=== PATIENT | male | born 1945 | race Caucasian/White ===

== ENCOUNTER 2016-09-20 06:06 | Inpatient (IN) | payer OTHER ==
[~2016-09-20] VITALS: Ht 180.3 cm; Wt 97.6 kg
[~2016-09-20 06:06] MED LIST: LISI10TA4 PO; MELO7.5S PO; SIMV20TA2 PO; TRAM50TA2 PO
[2016-09-20 06:52] LABS: BASO % 0.2 % (0.0-1.0); EOS # 0.3 K/mm3 (0.0-0.50); EOS % 2.8 % (0.0-3.0); LARGE UNSTAINED CELL # 0.3 K/mm3 (0.0-0.4); LARGE UNSTAINED CELL % 3.1 % (0.0-4.0); LYMPH # 1.3 K/mm3 (1.5-4.5); LYMPH % 12.2 % (24.0-44.0); MEAN CORPUSCULAR HEMOGLOBIN 27.1 pg (27.0-33.0); MEAN CORPUSCULAR HGB CONC 32.4 g/dl (32.0-36.5); MEAN CORPUSCULAR VOLUME 83.7 fl (80.0-96.0); MONO # 0.6 K/mm3 (0.0-0.8); MONO % 5.5 % (0.0-5.0); NEUTROPHILS # 8.3 K/mm3 (1.8-7.7); NEUTROPHILS % 76.2 % (36.0-66.0); PLATELET COUNT, AUTOMATED 231 k/mm3 (150-450); RED CELL DISTRIBUTION WIDTH 14.1 % (11.5-14.5); WHITE BLOOD COUNT 10.9 K/mm3 (4.0-10.0)
[2016-09-20 07:09] LABS: ALBUMIN 3.4 GM/DL (3.2-5.2); ALBUMIN/GLOBULIN RATIO 0.85 (1.00-1.93); ALKALINE PHOSPHATASE 97 U/L (45-117); ALT/SGPT 22 U/L (12-78); AMYLASE 45 U/L (25-115); ANION GAP 10 MEQ/L (8-16); AST/SGOT 14 U/L (15-37); BILIRUBIN,DIRECT 0.1 MG/DL (0.0-0.2); BILIRUBIN,TOTAL 0.6 MG/DL (0.2-1.0); BLOOD UREA NITROGEN 22 MG/DL (7-18); CALCIUM LEVEL 9.2 MG/DL (8.8-10.2); CARBON DIOXIDE LEVEL 26 MEQ/L (21-32); CHLORIDE LEVEL 103 MEQ/L (98-107); CREATININE FOR GFR 0.73 MG/DL (0.70-1.30); GLOMERULAR FILTRATION RATE > 60.0 (>49); GLUCOSE, FASTING 111 MG/DL (80-110); POTASSIUM SERUM 4.2 MEQ/L (3.5-5.1); SODIUM LEVEL 139 MEQ/L (136-145); TOTAL PROTEIN 7.4 GM/DL (6.4-8.2)
[2016-09-20] MEDS ORDERED: GASTROGRAFIN SOLUTION 30ML (Q9963) As Ordered ONE (08:02)
[2016-09-20] MEDS ORDERED: ISOVUE-370 76% 100ML VIAL (Q9967) As Ordered ONE (09:48)
[2016-09-20] MEDS ORDERED: ZOSYN 3.375 GM VIAL (J2543) As Ordered ONE (10:49)
[2016-09-20] MEDS ORDERED: SIMV20TA2 PO (10:58)
[2016-09-20] MEDS ORDERED: LISI10TA4 PO (10:58)
[2016-09-20] MEDS ORDERED: VITMTA PO (11:26)
[2016-09-20] MEDS ORDERED: PROMETHAZINE INJ 25 MG/ML VIAL (J2550) IV PRN (13:00)
[2016-09-20] MEDS ORDERED: MORPHINE 4 MG/ML 1ML SYRINGE IV PRN (13:00)
[2016-09-20] MEDS ORDERED: PERCOCET 5MG/325MG TAB PO PRN ×2 (13:00)
[2016-09-20] MEDS ORDERED: MORPHINE 2 MG/ML 1ML SYRINGE IV PRN (13:00)
[2016-09-20] MEDS ORDERED: ONDANSETRON 4MG/2ML VIAL (J2405) IV PRN (13:00)
[2016-09-20] MEDS ORDERED: zolPIDEM TARTRATE 10MG TAB PO PRN (13:00)
[2016-09-20] MEDS ORDERED: METOCLOPRAMIDE INJ 10MG/2ML VIAL (J2765) IV PRN (13:00)
[2016-09-20 13:44] VITALS: BP 129/72
--- NOTE | 2016-09-20 14:14 | EDDOCDS ---
Nurse's Notes [facility] Name: Kar Portillo Age: 71 yrs Sex: Male : 1945 Arrival Date: 09/20/2016 Time: 06:06 Bed 15 Private MD: Kalen Mccall H. Diagnosis: Acute appendicitis with localized peritonitis Presentation: 09/20 06:12 Presenting complaint: Patient states: right lower abdominal pain since Monday gradually cz getting worse no vomiting or diarrhea denies any bowel issues. Adult Sepsis Screening: The patient does not have new or worsening altered mentation. Patient's respiratory rate is less than 22. Systolic blood pressure is greater than 100. Patient has a qSOFA score of 0- Negative Sepsis Screen. Suicide/Homicide risk assessment- the patient denies having any suicidal and/or homicidal ideations and does not present with any other emotional, behavioral or mental health complaints. Status: Patient is not a web services developer or dependent. Transition of care: patient was not received from another setting of care. 06:12 Acuity: TAD Level 3 cz 06:12 Method Of Arrival: Walkin/Carried/Asstd cz Triage Assessment: 06:15 General: Appears uncomfortable. Pain: Location: right lower quadrant Pain currently is cz 6 out of 10 on a pain scale. Historical: - Allergies: No known drug Allergies; - Home Meds: 1. Lisinopril Oral 2. Simvastatin Oral - PMHx: Hypercholesterolemia; Hypertension; - PSHx: left tibial repair; Carpal Tunnel Repair- Bilateral; - Social history: Smoking status: Patient states former smoker of tobacco. No barriers to communication noted, The patient speaks fluent Ivorian, Speaks appropriately for age. - Family history: Not pertinent. - : The pt / caregiver states he / she is not on anticoagulants. Home medication list is obtained from the patient. - Exposure Risk Screening:: None identified. Screenin:35 Screening information is obtained from the patient. Fall risk: No risks identified. tm5 Assistance ADL's: requires no assistance with activities of daily living. Abuse/DV Screen: The patient / caregiver reports he/she is: not in a situation that causes fear, pain or injury. Nutritional screening: No deficits noted. Advance Directives: Currently, there is no health care proxy. There is no active DNR order. home support is adequate. Assessment: 06:36 General: Appears in no apparent distress, Behavior is appropriate for age, cooperative. tm5 Pain: Location: right lower quadrant Pain currently is 4 out of 10 on a pain scale. Quality of pain is described as sharp. Neurological: Level of Consciousness is awake, alert, Oriented to person, place, time. Respiratory: Airway is patent Respiratory effort is even, unlabored, Respiratory pattern is regular, symmetrical, Breath sounds are clear bilaterally. GI: Abdomen is obese, Bowel sounds present X 4 quads. 06:40 GI: Abd is soft and non tender X 4 quads. Reports nausea. : No deficits noted. Derm: tm5 Skin is pink, warm & dry. normal. 08:10 General: Appears in no apparent distress, Behavior is appropriate for age, cooperative. ja5 Pain: Location: abdomen RLQ Pain currently is 1 out of 10 on a pain scale. Quality of pain is described as crushing. Neurological: Level of Consciousness is awake, alert, Oriented to person, place, time. Respiratory: Airway is patent Respiratory effort is even, unlabored, Respiratory pattern is regular, symmetrical, Breath sounds are clear bilaterally. GI: Abdomen is non- distended Bowel sounds present X 4 quads. Abd is soft Abd is tender to palpation in right lower quadrant. Derm: Skin is pink, warm & dry. normal. 08:54 General: Pt resting on stretcher, watching television. Denies complaint at this time. jc4 10:05 General: Pt. just returned from CT, tolerated well, resting in bed watching television, ja5 no changes at this time.. 10:41 General: Pt resting on stretcher. No distress noted at this time. Color pink, skin warm jc4 and dry. Respirations easy and full. Call quintero in reach. 11:07 General: Patient watching television, resting, pain is 3/10 and is tolerable for ja5 patient at this time. . 12:20 Reassessment: Patient appears in no apparent distress at this time. jc4 13:59 General: Appears in no apparent distress, Behavior is cooperative, pleasant. Pain: Pain jc4 currently is 2 out of 10 on a pain scale. Neurological: Level of Consciousness is awake, alert, Oriented to person, place, time. Respiratory: Airway is patent Respiratory effort is even, unlabored, Respiratory pattern is regular, symmetrical. Derm: Skin is pink, warm & dry. Vital Signs: 06:15 BP 142 / 77; Pulse 99; Resp 16; Temp 97.7; Pulse Ox 98% on R/A; Weight 95.25 kg; Height cz 5 ft. 11 in. (180.34 cm); 10:03 BP 155 / 74; Pulse 87; Resp 16; Temp 97.9(O); Pulse Ox 95% on R/A; Pain 3/10; ja5 13:30 BP 129 / 72; Pulse 89; Resp 20; Temp 98.5(O); Pulse Ox 96% ; Pain 2/10; ja5 06:15 Body Mass Index 29.29 (95.25 kg, 180.34 cm) cz Vitals: 06:15 Log In Time: September 20, 2016 at 06:06. ED Course: 06:08 Patient visited by Rachid Bolden Reg. pm4 06:08 Kalen Mccall is Private Physician. pm4 06:08 Patient moved to Waiting pm4 06:14 Triage Initiated cz 06:17 Patient moved to 15 cz 06:33 Patient visited by Nina Nye RN. tm5 06:35 The patient / caregiver is instructed regarding the plan of care and ED course. tm5 06:35 Amylase Sent. tm5 06:35 Basic Metabolic Profile Sent. tm5 06:35 CBC with Diff Sent. tm5 06:35 Cardiac Injury Profile Sent. tm5 06:35 Lipase Sent. tm5 06:35 Liver Profile Sent. tm5 06:35 Troponin Sent. tm5 06:35 Inserted saline lock: 18 gauge in right antecubital area and blood collected. The tm5 patient tolerated the procedure well. Labs drawn. (by ED staff). Sent per order to lab. 07:04 [facility] Payment Agreement was scanned into [employer] and attached to record. hs2 07:05 [facility] jo4 07:05 David Gongora MD is Attending Physician. jo4 07:11 Patient name changed from Kar\S\Callum\S\Bandar\S\ to Kar\S\Shyam\S\Bandar. EDMS 07:20 Yoly Quintanilla, RACHEL is Primary Nurse. jc4 07:40 Patient visited by Rosalind Oseguera DO. jo4 08:45 Patient visited by Amena Bill PCA. ct3 09:58 Patient visited by Amena Bill PCA. ct3 10:36 Patient visited by Amena Bill PCA. ct3 10:42 Patient visited by Yoly Quintanilla RN. jc4 11:51 Patient visited by Amena Bill PCA. ct3 12:21 Patient visited by Amena Bill PCA. ct3 12:29 Inocente Weaver MD is Hospitalizing Provider. pc 14:00 No procedures done that require assistance. jc4 Administered Medications: 08:08 Drug: Diatrizoate Meglumine & Sodium 10 ml [diatrizoate meglumine and diat.sodium 66 ja5 %-10 % oral solution (10 mL)] Route: PO; 08:30 Drug: Diatrizoate Meglumine & Sodium 10 ml [diatrizoate meglumine and diat.sodium 66 jc4 %-10 % oral solution (10 mL)] Route: PO; 11:06 Drug: NS 0.9% 1000 ml [sodium chloride 0.9 % intravenous solution] Route: IV; Rate: 100 ja5 mL/hr; Site: right antecubital; 14:02 Follow up: IV Status: Infusion continued upon admit; IV Intake: 300ml jc4 11:06 Drug: Piperacillin-Tazobactam 3.375 grams [piperacillin-tazobactam 3.375 gram ja5 intravenous solution] Route: IVPB; Infused Over: 30 mins; Site: right antecubital; 12:06 Follow up: IV Status: Completed infusion; IV Intake: 50ml jc4 Intake: 08:00 PO: 300.00ml (Contrast); Total: 300.00ml. jc4 08:30 PO: 300.00ml (Contrast); Total: 600.00ml. jc4 12:06 IV: 50.00ml; Total: 650.00ml. jc4 14:02 IV: 300.00ml; Total: 950.00ml. jc4 Order Results: Lab Order: Amylase; SPEC'M 09/20/16 06:34 Test: AMYLASE; Value: 45; Range: 25-115; Units: U/L; Status: F Lab Order: Basic Metabolic Profile; SPEC'M 09/20/16 06:34 Test: GLUCOSE, FASTING; Value: 111; Range: 80-110; Abnormal: Above high normal; Units: MG/DL; Status: F Test: BLOOD UREA NITROGEN; Value: 22; Range: 7-18; Abnormal: Above high normal; Units: MG/DL; Status: F Test: CREATININE FOR GFR; Value: 0.73; Range: 0.70-1.30; Units: MG/DL; Status: F Test: GLOMERULAR FILTRATION RATE; Value: > 60.0; Range: >49; Status: F Test: SODIUM LEVEL; Value: 139; Range: 136-145; Units: MEQ/L; Status: F Test: POTASSIUM SERUM; Value: 4.2; Range: 3.5-5.1; Units: MEQ/L; Status: F Test: CHLORIDE LEVEL; Value: 103; Range: 98-107; Units: MEQ/L; Status: F Test: CARBON DIOXIDE LEVEL; Value: 26; Range: 21-32; Units: MEQ/L; Status: F Test: ANION GAP; Value: 10; Range: 8-16; Units: MEQ/L; Status: F Test: CALCIUM LEVEL; Value: 9.2; Range: 8.8-10.2; Units: MG/DL; Status: F Test Note: ; Units are mL/min/1.73 m2 Chronic Kidney Disease Staging per NKF: Stage I & II GFR >=60 Normal to Mildly Decreased Stage III GFR 30-59 Moderately Decreased Stage IV GFR 15-29 Severely Decreased Stage V GFR <15 Very Little GFR Left ESRD GFR <15 on [employer] Lab Order: CBC with Diff; SPEC'M 09/20/16 06:34 Test: WHITE BLOOD COUNT; Value: 10.9; Range: 4.0-10.0; Abnormal: Above high normal; Units: K/mm3; Status: F Test: RED BLOOD COUNT; Value: 4.46; Range: 4.30-6.10; Units: M/mm3; Status: F Test: HEMOGLOBIN; Value: 12.1; Range: 14.0-18.0; Abnormal: Below low normal; Units: g/dl; Status: F Test: HEMATOCRIT; Value: 37.4; Range: 42.0-52.0; Abnormal: Below low normal; Units: %; Status: F Test: MEAN CORPUSCULAR VOLUME; Value: 83.7; Range: 80.0-96.0; Units: fl; Status: F Test: MEAN CORPUSCULAR HEMOGLOBIN; Value: 27.1; Range: 27.0-33.0; Units: pg; Status: F Test: MEAN CORPUSCULAR HGB CONC; Value: 32.4; Range: 32.0-36.5; Units: g/dl; Status: F Test: RED CELL DISTRIBUTION WIDTH; Value: 14.1; Range: 11.5-14.5; Units: %; Status: F Test: PLATELET COUNT, AUTOMATED; Value: 231; Range: 150-450; Units: k/mm3; Status: F Test: NEUTROPHILS %; Value: 76.2; Range: 36.0-66.0; Abnormal: Above high normal; Units: %; Status: F Test: LYMPH %; Value: 12.2; Range: 24.0-44.0; Abnormal: Below low normal; Units: %; Status: F Test: MONO %; Value: 5.5; Range: 0.0-5.0; Abnormal: Above high normal; Units: %; Status: F Test: EOS %; Value: 2.8; Range: 0.0-3.0; Units: %; Status: F Test: BASO %; Value: 0.2; Range: 0.0-1.0; Units: %; Status: F Test: LARGE UNSTAINED CELL %; Value: 3.1; Range: 0.0-4.0; Units: %; Status: F Test: NEUTROPHILS #; Value: 8.3; Range: 1.8-7.7; Abnormal: Above high normal; Units: K/mm3; Status: F Test: LYMPH #; Value: 1.3; Range: 1.5-4.5; Abnormal: Below low normal; Units: K/mm3; Status: F Test: MONO #; Value: 0.6; Range: 0.0-0.8; Units: K/mm3; Status: F Test: EOS #; Value: 0.3; Range: 0.0-0.50; Units: K/mm3; Status: F Test: BASO #; Value: 0.0; Range: 0.0-0.2; Units: K/mm3; Status: F Test: LARGE UNSTAINED CELL #; Value: 0.3; Range: 0.0-0.4; Units: K/mm3; Status: F Lab Order: Cardiac Injury Profile; [facility] 09/20/16 06:34 Test: CPK CREATINE PHOSPHOKINASE; Value: 58; Range: 39-308; Units: U/L; Status: F Test: CK-MB VALUE MASS; Value: 1.0; Range: 0.0-3.6; Units: NG/ML; Status: F Test: MB/CK RELATIVE INDEX; Value: 1.72; Range: < OR =4; Status: F Test Note: ; DIAGNOSIS CRITERIA MMB ng/ml Relative Index (RI) NON-AMI < or = 5 N/A [place] > 5 < or = 4 AMI > 5 > 4 Lab Order: Lipase; [facility] 09/20/16 06:34 Test: LIPASE; Value: 196; Range: 73-393; Units: U/L; Status: F Lab Order: Liver Profile; [facility] 09/20/16 06:34 Test: AST/SGOT; Value: 14; Range: 15-37; Abnormal: Below low normal; Units: U/L; Status: F Test: ALT/SGPT; Value: 22; Range: 12-78; Units: U/L; Status: F Test: ALKALINE PHOSPHATASE; Value: 97; Range: 45-117; Units: U/L; Status: F Test: BILIRUBIN,TOTAL; Value: 0.6; Range: 0.2-1.0; Units: MG/DL; Status: F Test: BILIRUBIN,DIRECT; Value: 0.1; Range: 0.0-0.2; Units: MG/DL; Status: F Test: TOTAL PROTEIN; Value: 7.4; Range: 6.4-8.2; Units: GM/DL; Status: F Test: ALBUMIN; Value: 3.4; Range: 3.2-5.2; Units: GM/DL; Status: F Test: ALBUMIN/GLOBULIN RATIO; Value: 0.85; Range: 1.00-1.93; Abnormal: Below low normal; Status: F Lab Order: Troponin; [facility] 09/20/16 06:34 Test: TROPONIN I; Value: < 0.02; Range: < 0.10; Units: NG/ML; Status: F Test Note: ; Troponin I Reference Interval for [employer] LOCI: 99th Percentile= 0.00-0.045 ng/ml Risk Stratification: <= 0.10 ng/ml Decreased Risk for Adverse Clinical Events. 0.10-1.50 ng/ml Increased Risk for Adverse Clinical Events. Evaluation of additional criterion and/or repeat testing in 2-6 hours is suggested to rule out myocardial damage. >= 1.50 ng/ml Indicative of Myocardial Injury. Outcome: 12:29 Decision to Hospitalize by Provider. 13:52 Admission hand-off: Report Faxed Fax receipt verified by Raquel. [facility] 14:00 Discharge Assessment: Patient awake, alert and oriented x 3. No cognitive and/or jc4 functional deficits noted. Patient verbalized understanding of disposition instructions. patient administered narcotics - no. The following High Risk Discharge criteria are identified: None. Admitted to Med/Surg accompanied by tech, via stretcher, with chart. Condition: stable. CT Study completed. Property :Personal belongings accompany Pt. 14:13 Patient left the ED. [facility] Signatures: Dispatcher [employer] EDMS David Gongora MD MD pc Peters, Mary, RN Pravin So mcp, Yoly Viramontes RN, RN RN jc4 Amena Bill, SHANTA VECTOR CONTROL SPECIALIST ct3 Rosalind Oseguera DO DO jo4 Candelaria Kenny, Reg Reg hs2 Nina Nye,RN RN tm5 Rachid Bolden, Reg Reg pm4 Yanira Nelson,RN RN ja5 MTDD
--- NOTE | 2016-09-20 14:14 | EDDOCDS ---
Physician Documentation [facility] Name: Kar Portillo Age: 71 yrs Sex: Male : 1945 Arrival Date: 09/20/2016 Time: 06:06 Bed 15 Private MD: Kalen Mccall H. Disposition: 09/20 10:46 I have independently interviewed and examined the patient, and I agree with the pc investigation, diagnosis and treatment plan as documented by the Resident. 12:29 Critical Care: Critical care not applicable. pc Disposition: 09/20/16 12:29 Hospitalization ordered by Inocente Weaver for Inpatient Admission. Preliminary diagnosis is Acute appendicitis with localized peritonitis. - Bed requested for 4 Hanna. - Status is Inpatient Admission. mcp - Condition is Stable. - Problem is new. - Symptoms have improved. Historical: - Allergies: No known drug Allergies; - Home Meds: 1. Lisinopril Oral 2. Simvastatin Oral - PMHx: Hypercholesterolemia; Hypertension; - PSHx: left tibial repair; Carpal Tunnel Repair- Bilateral; - Social history: Smoking status: Patient states former smoker of tobacco. No barriers to communication noted, The patient speaks fluent Senegalese, Speaks appropriately for age. - Family history: Not pertinent. - : The pt / caregiver states he / she is not on anticoagulants. Home medication list is obtained from the patient. - Exposure Risk Screening:: None identified. Vital Signs: 06:15 BP 142 / 77; Pulse 99; Resp 16; Temp 97.7; Pulse Ox 98% on R/A; Weight 95.25 kg / cz 209.99 lbs; Height 5 ft. 11 in. (180.34 cm); 10:03 BP 155 / 74; Pulse 87; Resp 16; Temp 97.9(O); Pulse Ox 95% on R/A; Pain 3/10; ja5 13:30 BP 129 / 72; Pulse 89; Resp 20; Temp 98.5(O); Pulse Ox 96% ; Pain 2/10; ja5 06:15 Body Mass Index 29.29 (95.25 kg, 180.34 cm) cz MDM: 06:31 IV Saline Lock ordered. mm11 06:31 Undress patient appropriately for examination ordered. mm11 06:32 Amylase Ordered. EDMS 06:32 Basic Metabolic Profile Ordered. EDMS 06:32 CBC with Diff Ordered. EDMS 06:32 Cardiac Injury Profile Ordered. EDMS 06:32 Lipase Ordered. EDMS 06:32 Liver Profile Ordered. EDMS 06:32 Troponin Ordered. EDMS 06:32 NOTHING BY MOUTH+DIET ordered. EDMS 07:04 [facility] Payment Agreement was scanned into [employer] and attached to record. hs2 07:25 Amylase Reviewed. jo4 07:25 Basic Metabolic Profile Reviewed. jo4 07:25 CBC with Diff Reviewed. jo4 07:26 Liver Profile Reviewed. jo4 07:26 Cardiac Injury Profile Reviewed. jo4 07:27 Lipase Reviewed. jo4 07:27 Troponin Reviewed. jo4 07:40 Financial registration complete. hs2 07:41 CT ABD & PELVIS: IV and Oral Contrast Ordered. EDMS 08:09 Diatrizoate Meglumine & Sodium Liquid 10 ml PO once; mix in 290cc of water, administer jc4 at 0800 ordered. 08:09 Diatrizoate Meglumine & Sodium Liquid 10 ml PO once; mix in 290cc of water, administer jc4 at 0830 ordered. 10:42 NS 0.9% 1000 ml IV at 100 mL/hr continuous ordered. pc 10:42 Piperacillin-Tazobactam 3.375 grams IVPB once over 30 mins; dilute in 50mL of NS or D5W pc ordered. 10:43 BED REQUEST+ADM ordered. EDMS 12:59 Admission / Observation Status ordered. EDMS 12:59 NPO DIET ordered. EDMS Administered Medications: 08:08 Drug: Diatrizoate Meglumine & Sodium 10 ml [diatrizoate meglumine and diat.sodium 66 ja5 %-10 % oral solution (10 mL)] Route: PO; 08:30 Drug: Diatrizoate Meglumine & Sodium 10 ml [diatrizoate meglumine and diat.sodium 66 jc4 %-10 % oral solution (10 mL)] Route: PO; 11:06 Drug: NS 0.9% 1000 ml [sodium chloride 0.9 % intravenous solution] Route: IV; Rate: 100 ja5 mL/hr; Site: right antecubital; 14:02 Follow up: IV Status: Infusion continued upon admit; IV Intake: 300ml jc4 11:06 Drug: Piperacillin-Tazobactam 3.375 grams [piperacillin-tazobactam 3.375 gram ja5 intravenous solution] Route: IVPB; Infused Over: 30 mins; Site: right antecubital; 12:06 Follow up: IV Status: Completed infusion; IV Intake: 50ml jc4 Signatures: Dispatcher [employer] David Regalado MD MD pc Peters, Mary RN RN Pravin Woods RN RN cz Maynard, Matthew, DO DO mm11 Ade Waldrop, PRIMER WATERPROOFING MACHINE OPERATOR PRIMER WATERPROOFING MACHINE OPERATOR ar3 Yoly Quintanilla RN RN jc4 Rosalind Oseguera, DO DO jo4 Candelaria Kenny, Reg Reg hs2 Yanira Nelson RN5 The chart was reviewed and I authenticate all verbal orders and agree with the evaluation and treatment provided.Attachments: 07:04 [facility] Payment Agreement hs2 MTDD
[2016-09-20 14:20] VITALS: BP 160/77
[2016-09-20] MEDS: LISINOPRIL 10 MG TAB PO SCH (14:39)
[2016-09-20] MEDS: PANTOPRAZOLE 40MG INJ (PROTONIX) (C9113) IV SCH (14:39)
[2016-09-20] MEDS: KETOROLAC 30 MG/ML VIAL (J1885) IV SCH ×2 (14:40→21:05)
[2016-09-20] MEDS: cefTRIAXone SOD 1 GM in D5W MINI-BAG PLUS 50 ML IV SCH (14:40)
[2016-09-20] MEDS: LR 1,000 ML IV SCH ×2 (14:40→21:05)
--- NOTE | 2016-09-20 15:28 | HPE ---
DATE OF ADMISSION: 09/20/2016 CHIEF COMPLAINT: The patient is a 71-year-old male complaining of right lower abdominal pain. HISTORY OF PRESENT ILLNESS: The patient states abdominal pain has been ongoing since Monday and has been gradually becoming worse since that time. The patient rates the pain at the moment as a 1 or 2 out of 10, but it has been 6/10 at its worst. The pain is in the right lower quadrant. The pain does not move or change. The patient has no other abdominal pain. The patient states it is not as bad if he does not move. The patient denies any vomiting, diarrhea, constipation, or nausea. The patient has been able to eat and drink during this time. No changes in appetite. The pain is continuous with not much relief. HOME MEDICATIONS: The patient takes: - Lisinopril 10 mg tablets orally daily - simvastatin 20 mg tablets orally daily The patient also takes a multivitamin as well as acetaminophen PM at night to sleep. PAST MEDICAL HISTORY: 1. Hypercholesterolemia. 2. Hypertension. PAST SURGICAL HISTORY: He had a left tibial repair in 1986 for a fracture. He also had a carpal tunnel release bilaterally in the mid . SOCIAL HISTORY: The patient is currently a nonsmoker. He does not drink any alcohol or do any illicit substances. FAMILY HISTORY: Significant for father with a heart problem and mother with a stroke. REVIEW OF SYSTEMS: CONSTITUTIONAL SYMPTOMS: Denies fevers, night sweats, sweats, and weight loss. HEENT: The patient denies changes in vision, headaches, changes in hearing, difficulty swallowing. CARDIOVASCULAR: The patient denies chest pain and palpitations. LUNGS: The patient denies shortness of breath and cough. MUSCULOSKELETAL: The patient denies muscle pains and aches. SKIN: The patient denies any new rashes, lesions. EXTREMITIES: The patient denies any swelling in the lower extremities or any changes in muscle strength. NEUROLOGIC: The patient denies any changes in gait or numbness or tingling in his arms or legs. ENDOCRINE: The patient denies intolerance to hot or cold. PSYCHIATRIC: The patient denies any anxiety, depression, or not feeling of himself. GENITOURINARY: The patient denies changes in urination, pain, frequency, or blood. ABDOMEN: The patient denies nausea, vomiting, diarrhea, constipation, melena, and hematochezia. PHYSICAL EXAMINATION: VITAL SIGNS: Blood pressure 142/77, pulse 99, respiratory rate 16, temperature 97.7 Fahrenheit, pulse oximetry 98% on room air. Weight 95.25 kg. Body mass index (BMI) 29.29. APPEARANCE: The patient appears alert and orientated, cooperative with no acute distress. The patient is lying down in bed in the emergency room (ER). HEENT: Extraocular muscles intact. Pupils are equal and reactive to light and accommodation. No congestion on examination. No erythema or exudates in the oropharynx. No masses or enlarged lymph nodes palpated in the neck. No carotid bruits heard on examination. CARDIOVASCULAR: The patient has a 2/6 systolic murmur best heard in the right upper quadrant. LUNGS: Equal bilaterally. ABDOMEN: Soft and nondistended. Bowel sounds heard to auscultation, decreased. The patient has tenderness and pain to palpation in the right lower quadrant. The patient is sensitive to touch of the abdomen. No rebound tenderness or guarding on examination. EXTREMITIES: Radial pulse and pedal pulse 2/4 bilaterally. No lower extremity edema on examination. MUSCULOSKELETAL: Manager Delivery strength 5/5 bilaterally. SKIN: No lesions or rashes found on examination. NEUROLOGIC: The patient is alert and orientated with normal speech. No decreased muscle strength or sensation. PSYCHIATRIC: No depression or changes in mental status. Orientated times three. LABORATORY DATA: White blood cell count 10.9, hemoglobin 12.1, hematocrit 37.4, platelets 231. Sodium 139, potassium 4.2, chloride 103, CO2 26, BUN 22, creatinine 0.73, fasting glucose 111. IMAGING STUDIES: CT abdomen and pelvis with contrast: This showed a soft tissue mass, likely inflammatory in the base of the cecum, measuring 6.4 x 4.4 cm. Differential diagnosis includes extensive phlegmon with appendicitis, inflammatory bowel disease, and colitis. There was no free intraperitoneal air or ascites. There is extensive sigmoid diverticulosis. ASSESSMENT AND PLAN: The patient has a phlegmon noted in the right lower quadrant on CT of the abdomen and pelvis. The patient is to be admitted for observation overnight. Currently cannot rule out appendicitis at this time and therefore, the patient will be treated nonoperatively with a clear liquid diet and antibiotics. We will observe the patient to know if resolved, if the patient tolerates a clear liquid diet by tomorrow. If this is the case, the patient will be discharged home. At this time, cannot rule out inflammatory bowel disease or diverticulitis. We will monitor the patient at this time with antibiotics and a clear liquid diet. Discussed the treatment plan with Dr. Weaver. No plans for surgery at this time. We will reassess the patient tomorrow 09/21/2016. My preceptor for this patient encounter was Dr. Inocente Weaver. The preceptor was physically present in the building during the encounter and was fully available as needed. All aspects of the patient interview, examination, medical decision making process, and medical care plan development were reviewed and approved by the preceptor. The preceptor is aware and concurs with the plan as stated in the body of this note and will attest to such by his/her co-signature. CLIVE
[2016-09-20] MEDS: CIPROFLOXACIN 400 MG in APPROPRIATE DILUENT 1 EA IV SCH (15:48)
[2016-09-20] MEDS: metroNIDAZOLE 500 MG in APPROPRIATE DILUENT 1 EA IV SCH (17:08)
[2016-09-20 18:00] VITALS: BP 118/58
[2016-09-20] MEDS: SIMVASTATIN 20 MG TAB PO SCH (21:05)
[2016-09-20 22:00] VITALS: BP 112/58
--- NOTE | 2016-09-20 22:03 | REP ---
CT abdomen and pelvis 09/20/2016 with IV and oral contrast Indication: Appendicitis. Technique: After drinking two cups of oral contrast, each containing 10 ml gastrographin in 290 ml water, 100 ml Isovue 370 mg/ml was injected intravenously. 3 mm spiral axial sections were obtained through the abdomen and pelvis. Findings: Lung bases are clear bilaterally. Liver contains few scattered hypodense lesions most compatible with cysts and some are too small to accurately characterize. Spleen, pancreas, gallbladder are normal. There is no biliary dilatation. Adrenal glands are normal. Kidneys are without hydronephrosis or obstructing ureteral calculi bilaterally. There is a 3.6 cm hiatal hernia. Stomach is normal. Small bowel is without obstruction. Soft tissue mass within the region of the cecum is noted may represent phlegmonous appendicitis, malignancy or localized colitis. This soft tissue mass measures 6.4 by 4 x 4 cm. There is some stranding in the adjacent mesentery. T. There is extensive diverticulosis within the sigmoid colon. There is no free air or ascites. Punctate small metallic density consistent with foreign body or surgical clip is present within the right side of scrotum on image 159 series 201. Impression: Soft tissue mass, likely inflammatory within the base of the cecum measuring 6.4 x 4 x 4 cm. Differential diagnosis includes appendicitis with extensive phlegmon. The differential diagnosis may also include malignancy and less likely localized colitis. There is no free intraperitoneal air or ascites There is extensive sigmoid diverticulosis. Scattered small hypodensities within the liver most compatible with cysts. Some hypodense hepatic foci are are too small to accurately characterize. Recommend General surgery evaluation. Case discussed with Dr. Rosalind Oseguera on 09/20/16. Signed by Bianca Chen MD 09/20/2016 09:54 P
[2016-09-21] MEDS: metroNIDAZOLE 500 MG in APPROPRIATE DILUENT 1 EA IV SCH ×3 (00:09→17:44)
[2016-09-21 02:00] VITALS: BP 110/50
[2016-09-21] MEDS: KETOROLAC 30 MG/ML VIAL (J1885) IV SCH ×3 (02:56→15:05)
[2016-09-21] MEDS: LR 1,000 ML IV SCH (03:30)
[2016-09-21] MEDS: CIPROFLOXACIN 400 MG in APPROPRIATE DILUENT 1 EA IV SCH ×2 (03:30→15:53)
[2016-09-21 06:00] VITALS: BP 96/62
[2016-09-21 06:39] LABS: MEAN CORPUSCULAR HEMOGLOBIN 27.6 pg (27.0-33.0); MEAN CORPUSCULAR HGB CONC 31.8 g/dl (32.0-36.5); MEAN CORPUSCULAR VOLUME 86.9 fl (80.0-96.0); RED CELL DISTRIBUTION WIDTH 15.1 % (11.5-14.5); WHITE BLOOD COUNT 9.7 K/mm3 (4.0-10.0)
[2016-09-21 06:57] LABS: ANION GAP 8 MEQ/L (8-16); BLOOD UREA NITROGEN 19 MG/DL (7-18); CALCIUM LEVEL 8.4 MG/DL (8.8-10.2); CARBON DIOXIDE LEVEL 29 MEQ/L (21-32); CHLORIDE LEVEL 102 MEQ/L (98-107); CREATININE FOR GFR 0.81 MG/DL (0.70-1.30); GLOMERULAR FILTRATION RATE > 60.0 (>49); GLUCOSE, FASTING 104 MG/DL (80-110); POTASSIUM SERUM 4.3 MEQ/L (3.5-5.1); SODIUM LEVEL 139 MEQ/L (136-145)
--- NOTE | 2016-09-21 09:00 | IPNPDOC ---
Date/Time Seen The patient was seen on 09/21/16 at 08:51. Progress Note SUBJECTIVE: Patient is a 71-year-old male with abdominal pain. Patient 's abdominal pain has improved today. Reports right minimal discomfort and right lower quadrant. Only experiences pain with movement. 1 leg still does not have any pain in bed. Denies nausea and vomiting. Patient had a bowel movement this morning and was solid not liquid or bloody. Urinating has been fine no changes there. Was able to get some sleep. OBJECTIVE: PHYSICAL EXAMINATION: VITAL SIGNS: Please see below. GENERAL: Alert and oriented and cooperative. No acute distress. HEENT: Pupils equal reactive to light and accommodation. Extraocular muscles intact. CARDIOVASCULAR: Systolic murmur best heard at right sternal border. RESPIRATORY: Equal bilaterally. ABDOMINAL: Soft and nondistended. Mild tenderness to palpation of right lower quadrant. No guarding or peritoneal signs. EXTREMITIES: Pedal pulses 2 out of 4 bilaterally. NEUROLOGICAL: Speech intact. PSYCHOLOGICAL: Orientated and able to communicate effectively. LABORATORY DATA: Please see below. ASSESSMENT AND PLAN: This is a 71-year-old male with, abdominal pain. PROBLEMS: 1. Extensive phlegmon and rule out appendicitis 2. Abdominal pain DISPOSITION: Plan is to advance patient's diet to clear liquids. Stop IV fluids. Monitor patient for any changes. Plan on discharging patient tomorrow. We'll advance patient's diet to solids tomorrow morning. She tolerates this diet will be able to be discharged. Continue antibiotics at this time. Discussed treatment plan with Dr. Weaver.. VS, I&O, 24H, Elvira VS, I&O, 24H, Elvira Vital Signs Date Time Temp Pulse Resp B/P Pulse Ox O2 Delivery O2 Flow Rate FiO2 09/21/16 06:00 96.7 80 18 96/62 97 Room Air I&O- Last 24 Hours up to 6 AM 09/21/16 05:59 Intake Total 450 ml Output Total 800 ml Balance -350 ml Laboratory Tests 2 09/21/16 06:14: Anion Gap 8, Blood Urea Nitrogen 19H, Creatinine 0.81, Sodium Level 139, Potassium Level 4.3, Chloride Level 102, Carbon Dioxide Level 29, Calcium Level 8.4L, Glomerular Filtration Rate > 60.0 Laboratory Tests 09/21/16 06:14 Calcium Level 8.4 L, Red Blood Count 3.98 L, Mean Corpuscular Volume 86.9, Mean Corpuscular Hemoglobin 27.6, Mean Corpuscular Hemoglobin Concent 31.8 L, Red Cell Distribution Width 15.1 H GME ATTESTATION GME ATTESTATION My preceptor for this patient encounter was Dr. Weaver and he was physically present in the building during the encounter and was fully available. As needed , all aspects of the patient interview, examination, medical decision making process, and medical care plan development were reviewed and approved by the preceptor. Preceptor is aware and concurs with the plan as stated in the body of this note and will attest to such by his/her cosignature. JEANA KEITH DO Sep 21, 2016 09:00
[2016-09-21] MEDS: LISINOPRIL 10 MG TAB PO SCH (09:55)
[2016-09-21] MEDS: PANTOPRAZOLE 40MG INJ (PROTONIX) (C9113) IV SCH (09:55)
[2016-09-21 10:00] VITALS: BP 136/70
[2016-09-21 14:00] VITALS: BP 137/66
[2016-09-21] MEDS: cefTRIAXone SOD 1 GM in D5W MINI-BAG PLUS 50 ML IV SCH (15:04)
[2016-09-21 18:00] VITALS: BP 116/51
[2016-09-21] MEDS: SIMVASTATIN 20 MG TAB PO SCH (21:25)
[2016-09-21] MEDS ORDERED: ACETAMINOPHEN TAB 650MG DOSE (2X325MG) PO PRN (21:30)
[2016-09-21 22:00] VITALS: BP 108/54
[2016-09-22] MEDS: metroNIDAZOLE 500 MG in APPROPRIATE DILUENT 1 EA IV SCH ×2 (01:42→10:24)
[2016-09-22 02:00] VITALS: BP 113/64
[2016-09-22] MEDS: CIPROFLOXACIN 400 MG in APPROPRIATE DILUENT 1 EA IV SCH (04:45)
[2016-09-22 06:00] VITALS: BP 132/66
[2016-09-22 06:28] LABS: WHITE BLOOD COUNT 7.1 K/mm3 (4.0-10.0)
[2016-09-22 07:02] LABS: ANION GAP 8 MEQ/L (8-16); BLOOD UREA NITROGEN 11 MG/DL (7-18); CALCIUM LEVEL 8.3 MG/DL (8.8-10.2); CARBON DIOXIDE LEVEL 29 MEQ/L (21-32); CHLORIDE LEVEL 104 MEQ/L (98-107); CREATININE FOR GFR 0.77 MG/DL (0.70-1.30); GLOMERULAR FILTRATION RATE > 60.0 (>49); GLUCOSE, FASTING 128 MG/DL (80-110); SODIUM LEVEL 141 MEQ/L (136-145)
--- NOTE | 2016-09-22 10:13 | IPNPDOC ---
Date/Time Seen The patient was seen on 09/22/16 at 08:43. Progress Note SUBJECTIVE: Patient is a 71-year-old male with abdominal pain. Today patient has minimal pain, some discomfort in lower right abdomen. Pain occurs solely with movement and lying on right side. Patient had fever overnight with a temperature of 101.0 F at 6PM. Was given tylenol and fever subsided with temperature of 100.0 F at 10 PM. Patient has been and currently afebrile. Patient reports tolerance to clear liquid diet, this was advanced yesterday from NPO. No nausea or vomiting. Patient reports having bowel movement that morning. No blood in stool. OBJECTIVE: PHYSICAL EXAMINATION: VITAL SIGNS: Please see below. GENERAL: Alert and orientated. No acute distress. HEENT: EOM intact. Eyes open spontaneously. CARDIOVASCULAR: 2/2 systolic murmur best heard at right sternal border. RESPIRATORY: Equal bilaterally. ABDOMINAL: Soft, nondistended. No pain to palpation. No guarding. EXTREMITIES: No lower extremity edema. LABORATORY DATA: Please see below. MICROBIOLOGY: Please see below. ASSESSMENT AND PLAN: Patient is a 71-year-old male with phlegmon noted on abdominal CT, rule out appendicitis. PROBLEMS: 1. Abdominal pain. 2. Cecal phlegmon, possible appendicitis. DISPOSITION: Abdominal pain has improved. Mild discomfort remains. Patient became febrile yesterday following antibiotics, with a temperature of 101.0F. Fever resolved with one dose of Tylenol and patient has been afebrile for 10+ hours. Advanced diet to solid foods. See if patient can tolerate diet. Patient has remained afebrile. Plan is to discharge patient home. Discharge patient on home with antibiotics. Plan to follow up with Dr. Weaver next Monday in the office. Discussed treatment plan with Dr. Weaver. VS, I&O, 24H, Fishbone VS, I&O, 24H, Fishbone Vital Signs Date Time Temp Pulse Resp B/P Pulse Ox O2 Delivery O2 Flow Rate FiO2 09/22/16 06:00 98.3 82 17 132/66 96 Room Air I&O- Last 24 Hours up to 6 AM 09/22/16 06:00 Intake Total 1440 ml Output Total 300 ml Balance 1140 ml Laboratory Tests 2 09/22/16 06:03: Anion Gap 8, Blood Urea Nitrogen 11, Creatinine 0.77, Sodium Level 141, Potassium Level 4.0, Chloride Level 104, Carbon Dioxide Level 29, Calcium Level 8.3L, Glomerular Filtration Rate > 60.0 Laboratory Tests 09/22/16 06:03 Calcium Level 8.3 L, Red Blood Count 3.88 L, Mean Corpuscular Volume 85.0, Mean Corpuscular Hemoglobin 28.0, Mean Corpuscular Hemoglobin Concent 33.0, Red Cell Distribution Width 14.0 GME ATTESTATION GME ATTESTATION My preceptor for this patient encounter was Dr. Weaver and he was physically present in the building during the encounter and was fully available. As needed , all aspects of the patient interview, examination, medical decision making process, and medical care plan development were reviewed and approved by the preceptor. Preceptor is aware and concurs with the plan as stated in the body of this note and will attest to such by his/her cosignature. JEANA KEITH DO Sep 22, 2016 08:56
[2016-09-22 10:24] VITALS: BP 142/64
[2016-09-22] MEDS: LISINOPRIL 10 MG TAB PO SCH (10:24)
[2016-09-22] MEDS: PANTOPRAZOLE 40MG INJ (PROTONIX) (C9113) IV SCH (10:24)
[2016-09-22] MEDS ORDERED: CIPR500T89 PO (10:34)
[2016-09-22] MEDS ORDERED: FLAG500T PO (10:34)
--- NOTE | 2016-09-22 11:45 | DS.PDOC ---
Discharge Summary General Date of Admission Sep 20, 2016 at 12:55 Date of Discharge Sep 22, 2016 Attending Physician: Inocente Weaver Jr Discharge Summary Primary Care Physician: Kalen Mccall M.D. PROCEDURES PERFORMED DURING STAY: [None.] COMPLICATIONS/CHIEF COMPLAINT: Abdominal Pain ADMISSION DIAGNOSES: 1. Abdominal Pain 2. Phlegmon, cannot rule out appendicitis, diverticulitis DISCHARGE DIAGNOSES: 1. Abdominal Pain 2. Phlegmon, cannot rule out appendicitis, diverticulitis HISTORY OF PRESENT ILLNESS: Patient is a 71-year-old male with abdominal pain. HOSPITAL COURSE: Patient was admitted for abdominal pain for 2 days. Patient presented to ER with RLQ pain. The pain was sharp and got worse with movement. Patient does not have a history of abdominal surgery. The pain was continuous and did not resolve so patient went to ER. While in the ER patient had a CT scan with IV and oral contrast. This revealed a phlegmon in cecum measuring 6.4x4x4 cm. Could not rule out appendicitis, diverticulitis at that time. Patient was admitted to surgery service. While in the hospital patient was initially placed NPO with IV rehydration lactated ringers. Patient improved on day 2 and diet was advanced to clear liquid diet with discontinuation of IV fluids. Patient was also treated with IV antibiotics. Patient was treated with IV metronidazole 500 mg Q8h, Ciprofloxacin IV 400 mg q12h, and ceftriaxone IV q12h. Patient was afebrile on admission. Patient did have fever on 07/22 with a temperature of 101.0 F. Fever resolved with one dose of Tylenol and patient remained afebrile. Patient also received IV Protonix 40 mg daily. Patient also continued home medication Lisinopril 10 mg daily and simvastatin 20 mg daily for hypertension and hypercholesterolemia, respectively. WBC count was 10.9 on admission and had decreased to 7.1 on discharge. Abdominal pain resolved to an occasional dull ache in the RLQ. Still has some mild discomfort with movement. Patient was having regular bowel movements while in the hospital. No problems with headaches, chest pain, palpitations, shortness of breath, nausea, vomiting, problems urinating, pins and needles in extremities. DISCHARGE MEDICATIONS: Please see below. ALLERGIES: Please see below. PHYSICAL EXAMINATION ON DISCHARGE: VITAL SIGNS: Please see below. GENERAL: Alert and orientated. No acute distress. Cooperative and comfortable. HEENT: EOM intact. Eye open spontaneously. NECK: No masses palpated or enlarged lymph nodes. CARDIOVASCULAR EXAMINATION: 2/6 systolic murmur best heard right sternal border. RESPIRATORY EXAMINATION: Symmetrical chest rise. Equal breath sounds. ABDOMINAL EXAMINATION: Soft and nondistended. Mild tenderness to palpation RLQ. No guarding or rebound tenderness. EXTREMITIES: No lower extremity edema. SKIN: No new rashes or lesions. LABORATORY DATA: Please see below. IMAGING: CT abdomen/ pelvis with oral and IV contrast 09/20. Soft tissue mass, likely inflammatory within the base of the cecum measuring 6.4 x 4 x 4 cm. No free intraperitoneal air or ascites. Extensive sigmoid diverticulitis. DISCHARGE CONDITION: Stable. DISPOSITION: Home. ACTIVITY: As tolerated. Routine activity. DIET: [place] diet. Small and frequent meals. ITEMS TO FOLLOWUP ON OUTPATIENT: 1. CT scan of abdomen and pelvis DISCHARGE PLAN AND INSTRUCTIONS: 1. Discharge home with bland diet. Return to routine activity. Follow up appointment with Dr. Weaver Thursday 09/28. 2. Discharged home on ciprofloxacin 500 mg BID for 10 days and Flagyl 500 mg TID for 10 days. 3. Continue home medications. TIME SPENT ON DISCHARGE: Greater than 20 minutes. Vital Signs/I&Os Vital Signs Date Time Temp Pulse Resp B/P Pulse Ox O2 Delivery O2 Flow Rate FiO2 09/22/16 10:24 142/64 09/22/16 06:00 98.3 82 17 96 Room Air I&O- Last 24 Hours up to 6 AM 09/22/16 06:00 Intake Total 1440 ml Output Total 300 ml Balance 1140 ml Laboratory Data Labs 24H Laboratory Tests 2 09/22/16 06:03: Anion Gap 8, Blood Urea Nitrogen 11, Creatinine 0.77, Sodium Level 141, Potassium Level 4.0, Chloride Level 104, Carbon Dioxide Level 29, Calcium Level 8.3L, Glomerular Filtration Rate > 60.0 CBC/BMP Laboratory Tests 09/22/16 06:03 Calcium Level 8.3 L, Red Blood Count 3.88 L, Mean Corpuscular Volume 85.0, Mean Corpuscular Hemoglobin 28.0, Mean Corpuscular Hemoglobin Concent 33.0, Red Cell Distribution Width 14.0 Medications Scheduled Ciprofloxacin HCl (Cipro) 500 Mg Tab 500 MG PO BID Lisinopril (Lisinopril) 10 Mg Tab 10 MG PO DAILY Metronidazole (Flagyl) 500 Mg Tab 500 MG PO TID Multivitamins *[facility] STOCKED* (Thera M Plus *[facility] STOCKED*) 1 Tab Tab 1 TAB PO DAILY Simvastatin (Simvastatin) 20 Mg Tab 20 MG PO QHS Allergies Coded Allergies: No Known Drug Allergy (Unverified Allergy, Unknown, 09/20/16) GME ATTESTATION GME ATTESTATION My preceptor for this patient encounter was Dr. Weaver and he was physically present in the building during the encounter and was fully available. As needed , all aspects of the patient interview, examination, medical decision making process, and medical care plan development were reviewed and approved by the preceptor. Preceptor is aware and concurs with the plan as stated in the body of this note and will attest to such by his/her cosignature. JEANA KEITH DO Sep 22, 2016 11:45
--- NOTE | 2016-09-22 15:13 | EDDOCDS ---
Nurse's Notes [facility] Name: Kar Portillo Age: 71 yrs Sex: Male : 1945 Arrival Date: 09/20/2016 Time: 06:06 Bed 15 Private MD: Kalen Mccall H. Diagnosis: Acute appendicitis with localized peritonitis Presentation: 09/20 06:12 Presenting complaint: Patient states: right lower abdominal pain since Monday gradually cz getting worse no vomiting or diarrhea denies any bowel issues. Adult Sepsis Screening: The patient does not have new or worsening altered mentation. Patient's respiratory rate is less than 22. Systolic blood pressure is greater than 100. Patient has a qSOFA score of 0- Negative Sepsis Screen. Suicide/Homicide risk assessment- the patient denies having any suicidal and/or homicidal ideations and does not present with any other emotional, behavioral or mental health complaints. Status: Patient is not a service secretary or dependent. Transition of care: patient was not received from another setting of care. 06:12 Acuity: TAD Level 3 cz 06:12 Method Of Arrival: Walkin/Carried/Asstd cz Triage Assessment: 06:15 General: Appears uncomfortable. Pain: Location: right lower quadrant Pain currently is cz 6 out of 10 on a pain scale. Historical: - Allergies: No known drug Allergies; - Home Meds: 1. Lisinopril Oral 2. Simvastatin Oral - PMHx: Hypercholesterolemia; Hypertension; - PSHx: left tibial repair; Carpal Tunnel Repair- Bilateral; - Social history: Smoking status: Patient states former smoker of tobacco. No barriers to communication noted, The patient speaks fluent Emirati, Speaks appropriately for age. - Family history: Not pertinent. - : The pt / caregiver states he / she is not on anticoagulants. Home medication list is obtained from the patient. - Exposure Risk Screening:: None identified. Screenin:35 Screening information is obtained from the patient. Fall risk: No risks identified. tm5 Assistance ADL's: requires no assistance with activities of daily living. Abuse/DV Screen: The patient / caregiver reports he/she is: not in a situation that causes fear, pain or injury. Nutritional screening: No deficits noted. Advance Directives: Currently, there is no health care proxy. There is no active DNR order. home support is adequate. Assessment: 06:36 General: Appears in no apparent distress, Behavior is appropriate for age, cooperative. tm5 Pain: Location: right lower quadrant Pain currently is 4 out of 10 on a pain scale. Quality of pain is described as sharp. Neurological: Level of Consciousness is awake, alert, Oriented to person, place, time. Respiratory: Airway is patent Respiratory effort is even, unlabored, Respiratory pattern is regular, symmetrical, Breath sounds are clear bilaterally. GI: Abdomen is obese, Bowel sounds present X 4 quads. 06:40 GI: Abd is soft and non tender X 4 quads. Reports nausea. : No deficits noted. Derm: tm5 Skin is pink, warm & dry. normal. 08:10 General: Appears in no apparent distress, Behavior is appropriate for age, cooperative. ja5 Pain: Location: abdomen RLQ Pain currently is 1 out of 10 on a pain scale. Quality of pain is described as crushing. Neurological: Level of Consciousness is awake, alert, Oriented to person, place, time. Respiratory: Airway is patent Respiratory effort is even, unlabored, Respiratory pattern is regular, symmetrical, Breath sounds are clear bilaterally. GI: Abdomen is non- distended Bowel sounds present X 4 quads. Abd is soft Abd is tender to palpation in right lower quadrant. Derm: Skin is pink, warm & dry. normal. 08:54 General: Pt resting on stretcher, watching television. Denies complaint at this time. jc4 10:05 General: Pt. just returned from CT, tolerated well, resting in bed watching television, ja5 no changes at this time.. 10:41 General: Pt resting on stretcher. No distress noted at this time. Color pink, skin warm jc4 and dry. Respirations easy and full. Call quintero in reach. 11:07 General: Patient watching television, resting, pain is 3/10 and is tolerable for ja5 patient at this time. . 12:20 Reassessment: Patient appears in no apparent distress at this time. jc4 13:59 General: Appears in no apparent distress, Behavior is cooperative, pleasant. Pain: Pain jc4 currently is 2 out of 10 on a pain scale. Neurological: Level of Consciousness is awake, alert, Oriented to person, place, time. Respiratory: Airway is patent Respiratory effort is even, unlabored, Respiratory pattern is regular, symmetrical. Derm: Skin is pink, warm & dry. Vital Signs: 06:15 BP 142 / 77; Pulse 99; Resp 16; Temp 97.7; Pulse Ox 98% on R/A; Weight 95.25 kg; Height cz 5 ft. 11 in. (180.34 cm); 10:03 BP 155 / 74; Pulse 87; Resp 16; Temp 97.9(O); Pulse Ox 95% on R/A; Pain 3/10; ja5 13:30 BP 129 / 72; Pulse 89; Resp 20; Temp 98.5(O); Pulse Ox 96% ; Pain 2/10; ja5 06:15 Body Mass Index 29.29 (95.25 kg, 180.34 cm) cz Vitals: 06:15 Log In Time: September 20, 2016 at 06:06. ED Course: 06:08 Patient visited by Rachid Bolden Reg. pm4 06:08 Kalen Mccall is Private Physician. pm4 06:08 Patient moved to Waiting pm4 06:14 Triage Initiated cz 06:17 Patient moved to 15 cz 06:33 Patient visited by Nina Nye RN. tm5 06:35 The patient / caregiver is instructed regarding the plan of care and ED course. tm5 06:35 Amylase Sent. tm5 06:35 Basic Metabolic Profile Sent. tm5 06:35 CBC with Diff Sent. tm5 06:35 Cardiac Injury Profile Sent. tm5 06:35 Lipase Sent. tm5 06:35 Liver Profile Sent. tm5 06:35 Troponin Sent. tm5 06:35 Inserted saline lock: 18 gauge in right antecubital area and blood collected. The tm5 patient tolerated the procedure well. Labs drawn. (by ED staff). Sent per order to lab. 07:04 [facility] Payment Agreement was scanned into [employer] and attached to record. hs2 07:05 [facility]ind [facility] jo4 07:05 David Gongora MD is Attending Physician. jo4 07:11 Patient name changed from Kar\S\Callum\S\Bandar\S\ to Kar\S\Shyam\S\Bandar. EDMS 07:20 Yoly Quintanilla, RACHEL is Primary Nurse. jc4 07:40 Patient visited by Rosalind Oseguera DO. jo4 08:45 Patient visited by Amena Bill PCA. ct3 09:58 Patient visited by Amena Bill PCA. ct3 10:36 Patient visited by Amena Bill PCA. ct3 10:42 Patient visited by Yoly Quintanilla RN. jc4 11:51 Patient visited by Amena Bill PCA. ct3 12:21 Patient visited by Amena Bill PCA. ct3 12:29 Inocente Weaver MD is Hospitalizing Provider. pc 14:00 No procedures done that require assistance. [facility] 09/21 10:58 T-Sheet-- Draft Copy was scanned into [employer] and attached to record. gb Administered Medications: 09/20 08:08 Drug: Diatrizoate Meglumine & Sodium 10 ml [diatrizoate meglumine and diat.sodium 66 ja5 %-10 % oral solution (10 mL)] Route: PO; 08:30 Drug: Diatrizoate Meglumine & Sodium 10 ml [diatrizoate meglumine and diat.sodium 66 jc4 %-10 % oral solution (10 mL)] Route: PO; 11:06 Drug: NS 0.9% 1000 ml [sodium chloride 0.9 % intravenous solution] Route: IV; Rate: 100 ja5 mL/hr; Site: right antecubital; 14:02 Follow up: IV Status: Infusion continued upon admit; IV Intake: 300ml jc4 11:06 Drug: Piperacillin-Tazobactam 3.375 grams [piperacillin-tazobactam 3.375 gram ja5 intravenous solution] Route: IVPB; Infused Over: 30 mins; Site: right antecubital; 12:06 Follow up: IV Status: Completed infusion; IV Intake: 50ml jc4 Intake: 08:00 PO: 300.00ml (Contrast); Total: 300.00ml. jc4 08:30 PO: 300.00ml (Contrast); Total: 600.00ml. jc4 12:06 IV: 50.00ml; Total: 650.00ml. jc4 14:02 IV: 300.00ml; Total: 950.00ml. jc4 Order Results: Lab Order: Amylase; SPEC'M 09/20/16 06:34 Test: AMYLASE; Value: 45; Range: 25-115; Units: U/L; Status: F Lab Order: Basic Metabolic Profile; SPEC'M 09/20/16 06:34 Test: GLUCOSE, FASTING; Value: 111; Range: 80-110; Abnormal: Above high normal; Units: MG/DL; Status: F Test: BLOOD UREA NITROGEN; Value: 22; Range: 7-18; Abnormal: Above high normal; Units: MG/DL; Status: F Test: CREATININE FOR GFR; Value: 0.73; Range: 0.70-1.30; Units: MG/DL; Status: F Test: GLOMERULAR FILTRATION RATE; Value: > 60.0; Range: >49; Status: F Test: SODIUM LEVEL; Value: 139; Range: 136-145; Units: MEQ/L; Status: F Test: POTASSIUM SERUM; Value: 4.2; Range: 3.5-5.1; Units: MEQ/L; Status: F Test: CHLORIDE LEVEL; Value: 103; Range: 98-107; Units: MEQ/L; Status: F Test: CARBON DIOXIDE LEVEL; Value: 26; Range: 21-32; Units: MEQ/L; Status: F Test: ANION GAP; Value: 10; Range: 8-16; Units: MEQ/L; Status: F Test: CALCIUM LEVEL; Value: 9.2; Range: 8.8-10.2; Units: MG/DL; Status: F Test Note: ; Units are mL/min/1.73 m2 Chronic Kidney Disease Staging per NKF: Stage I & II GFR >=60 Normal to Mildly Decreased Stage III GFR 30-59 Moderately Decreased Stage IV GFR 15-29 Severely Decreased Stage V GFR <15 Very Little GFR Left ESRD GFR <15 on DIRECTOR MOBILE Lab Order: CBC with Diff; SPEC'M 09/20/16 06:34 Test: WHITE BLOOD COUNT; Value: 10.9; Range: 4.0-10.0; Abnormal: Above high normal; Units: K/mm3; Status: F Test: RED BLOOD COUNT; Value: 4.46; Range: 4.30-6.10; Units: M/mm3; Status: F Test: HEMOGLOBIN; Value: 12.1; Range: 14.0-18.0; Abnormal: Below low normal; Units: g/dl; Status: F Test: HEMATOCRIT; Value: 37.4; Range: 42.0-52.0; Abnormal: Below low normal; Units: %; Status: F Test: MEAN CORPUSCULAR VOLUME; Value: 83.7; Range: 80.0-96.0; Units: fl; Status: F Test: MEAN CORPUSCULAR HEMOGLOBIN; Value: 27.1; Range: 27.0-33.0; Units: pg; Status: F Test: MEAN CORPUSCULAR HGB CONC; Value: 32.4; Range: 32.0-36.5; Units: g/dl; Status: F Test: RED CELL DISTRIBUTION WIDTH; Value: 14.1; Range: 11.5-14.5; Units: %; Status: F Test: PLATELET COUNT, AUTOMATED; Value: 231; Range: 150-450; Units: k/mm3; Status: F Test: NEUTROPHILS %; Value: 76.2; Range: 36.0-66.0; Abnormal: Above high normal; Units: %; Status: F Test: LYMPH %; Value: 12.2; Range: 24.0-44.0; Abnormal: Below low normal; Units: %; Status: F Test: MONO %; Value: 5.5; Range: 0.0-5.0; Abnormal: Above high normal; Units: %; Status: F Test: EOS %; Value: 2.8; Range: 0.0-3.0; Units: %; Status: F Test: BASO %; Value: 0.2; Range: 0.0-1.0; Units: %; Status: F Test: LARGE UNSTAINED CELL %; Value: 3.1; Range: 0.0-4.0; Units: %; Status: F Test: NEUTROPHILS #; Value: 8.3; Range: 1.8-7.7; Abnormal: Above high normal; Units: K/mm3; Status: F Test: LYMPH #; Value: 1.3; Range: 1.5-4.5; Abnormal: Below low normal; Units: K/mm3; Status: F Test: MONO #; Value: 0.6; Range: 0.0-0.8; Units: K/mm3; Status: F Test: EOS #; Value: 0.3; Range: 0.0-0.50; Units: K/mm3; Status: F Test: BASO #; Value: 0.0; Range: 0.0-0.2; Units: K/mm3; Status: F Test: LARGE UNSTAINED CELL #; Value: 0.3; Range: 0.0-0.4; Units: K/mm3; Status: F Lab Order: Cardiac Injury Profile; [facility] 09/20/16 06:34 Test: CPK CREATINE PHOSPHOKINASE; Value: 58; Range: 39-308; Units: U/L; Status: F Test: CK-MB VALUE MASS; Value: 1.0; Range: 0.0-3.6; Units: NG/ML; Status: F Test: MB/CK RELATIVE INDEX; Value: 1.72; Range: < OR =4; Status: F Test Note: ; DIAGNOSIS CRITERIA MMB ng/ml Relative Index (RI) NON-AMI < or = 5 N/A [place] > 5 < or = 4 AMI > 5 > 4 Lab Order: Lipase; [facility] 09/20/16 06:34 Test: LIPASE; Value: 196; Range: 73-393; Units: U/L; Status: F Lab Order: Liver Profile; [facility] 09/20/16 06:34 Test: AST/SGOT; Value: 14; Range: 15-37; Abnormal: Below low normal; Units: U/L; Status: F Test: ALT/SGPT; Value: 22; Range: 12-78; Units: U/L; Status: F Test: ALKALINE PHOSPHATASE; Value: 97; Range: 45-117; Units: U/L; Status: F Test: BILIRUBIN,TOTAL; Value: 0.6; Range: 0.2-1.0; Units: MG/DL; Status: F Test: BILIRUBIN,DIRECT; Value: 0.1; Range: 0.0-0.2; Units: MG/DL; Status: F Test: TOTAL PROTEIN; Value: 7.4; Range: 6.4-8.2; Units: GM/DL; Status: F Test: ALBUMIN; Value: 3.4; Range: 3.2-5.2; Units: GM/DL; Status: F Test: ALBUMIN/GLOBULIN RATIO; Value: 0.85; Range: 1.00-1.93; Abnormal: Below low normal; Status: F Lab Order: Troponin; SPEC'M 09/20/16 06:34 Test: TROPONIN I; Value: < 0.02; Range: < 0.10; Units: NG/ML; Status: F Test Note: ; Troponin I Reference Interval for Siemens GetAFive LOCI: 99th Percentile= 0.00-0.045 ng/ml Risk Stratification: <= 0.10 ng/ml Decreased Risk for Adverse Clinical Events. 0.10-1.50 ng/ml Increased Risk for Adverse Clinical Events. Evaluation of additional criterion and/or repeat testing in 2-6 hours is suggested to rule out myocardial damage. >= 1.50 ng/ml Indicative of Myocardial Injury. Outcome: 12:29 Decision to Hospitalize by Provider. pc 13:52 Admission hand-off: Report Faxed Fax receipt verified by Raquel. jc 14:00 Discharge Assessment: Patient awake, alert and oriented x 3. No cognitive and/or jc4 functional deficits noted. Patient verbalized understanding of disposition instructions. patient administered narcotics - no. The following High Risk Discharge criteria are identified: None. Admitted to Med/Surg accompanied by tech, via stretcher, with chart. Condition: stable. CT Study completed. Property :Personal belongings accompany Pt. 14:13 [address] ED[address] [facility] Signatures: Dispatcher [employer] EDMS David Gongora MD MD pc Peters, Mary, RN Pravin So mcp, Flores Chang RN, Reg Reg gb Yoly Quintanilla, RN RN jc4 Amena Bill, CUSTOMS COMPLIANCE DIRECTOR CUSTOMS COMPLIANCE DIRECTOR ct3 Rosalind Oseguera, DO DO jo4 Candelaria Kenny, Reg Reg hs2 Nina Nye,RN RN tm5 Rachid Bolden, Reg Reg pm4 Yanira Nelson,RN RN ja5 Chart Complete MTDD
--- NOTE | 2016-09-22 15:13 | EDDOCDS ---
Physician Documentation [facility] Name: Kar Portillo Age: 71 yrs Sex: Male : 1945 Arrival Date: 09/20/2016 Time: 06:06 Bed 15 Private MD: Kalen Mccall H. Disposition: 09/20 10:46 I have independently interviewed and examined the patient, and I agree with the pc investigation, diagnosis and treatment plan as documented by the Resident. 12:29 Critical Care: Critical care not applicable. pc Disposition: 09/20/16 12:29 Hospitalization ordered by Inocente Weaver for Inpatient Admission. Preliminary diagnosis is Acute appendicitis with localized peritonitis. - Bed requested for 4 [place]. - Status is Inpatient Admission. mcp - Condition is Stable. - Problem is new. - Symptoms have improved. Historical: - Allergies: No known drug Allergies; - Home Meds: 1. Lisinopril Oral 2. Simvastatin Oral - PMHx: Hypercholesterolemia; Hypertension; - PSHx: left tibial repair; Carpal Tunnel Repair- Bilateral; - Social history: Smoking status: Patient states former smoker of tobacco. No barriers to communication noted, The patient speaks fluent Fijian, Speaks appropriately for age. - Family history: Not pertinent. - : The pt / caregiver states he / she is not on anticoagulants. Home medication list is obtained from the patient. - Exposure Risk Screening:: None identified. Vital Signs: 06:15 BP 142 / 77; Pulse 99; Resp 16; Temp 97.7; Pulse Ox 98% on R/A; Weight 95.25 kg / cz 209.99 lbs; Height 5 ft. 11 in. (180.34 cm); 10:03 BP 155 / 74; Pulse 87; Resp 16; Temp 97.9(O); Pulse Ox 95% on R/A; Pain 3/10; ja5 13:30 BP 129 / 72; Pulse 89; Resp 20; Temp 98.5(O); Pulse Ox 96% ; Pain 2/10; ja5 06:15 Body Mass Index 29.29 (95.25 kg, 180.34 cm) cz MDM: 06:31 IV Saline Lock ordered. mm11 06:31 Undress patient appropriately for examination ordered. mm11 06:32 Amylase Ordered. EDMS 06:32 Basic Metabolic Profile Ordered. EDMS 06:32 CBC with Diff Ordered. EDMS 06:32 Cardiac Injury Profile Ordered. EDMS 06:32 Lipase Ordered. EDMS 06:32 Liver Profile Ordered. EDMS 06:32 Troponin Ordered. EDMS 06:32 NOTHING BY MOUTH+DIET ordered. EDMS 07:04 [facility] Payment Agreement was scanned into [employer] and attached to record. hs2 07:25 Amylase Reviewed. jo4 07:25 Basic Metabolic Profile Reviewed. jo4 07:25 CBC with Diff Reviewed. jo4 07:26 Liver Profile Reviewed. jo4 07:26 Cardiac Injury Profile Reviewed. jo4 07:27 Lipase Reviewed. jo4 07:27 Troponin Reviewed. jo4 07:40 Financial registration complete. hs2 07:41 CT ABD & PELVIS: IV and Oral Contrast Ordered. EDMS 08:09 Diatrizoate Meglumine & Sodium Liquid 10 ml PO once; mix in 290cc of water, administer jc4 at 0800 ordered. 08:09 Diatrizoate Meglumine & Sodium Liquid 10 ml PO once; mix in 290cc of water, administer jc4 at 0830 ordered. 10:42 NS 0.9% 1000 ml IV at 100 mL/hr continuous ordered. pc 10:42 Piperacillin-Tazobactam 3.375 grams IVPB once over 30 mins; dilute in 50mL of NS or D5W pc ordered. 10:43 BED REQUEST+ADM ordered. EDMS 12:59 Admission / Observation Status ordered. EDMS 12:59 NPO DIET ordered. EDMS 09/21 10:58 T-Sheet-- Draft Copy was scanned into [employer] and attached to record. gb Administered Medications: 09/20 08:08 Drug: Diatrizoate Meglumine & Sodium 10 ml [diatrizoate meglumine and diat.sodium 66 ja5 %-10 % oral solution (10 mL)] Route: PO; 08:30 Drug: Diatrizoate Meglumine & Sodium 10 ml [diatrizoate meglumine and diat.sodium 66 jc4 %-10 % oral solution (10 mL)] Route: PO; 11:06 Drug: NS 0.9% 1000 ml [sodium chloride 0.9 % intravenous solution] Route: IV; Rate: 100 ja5 mL/hr; Site: right antecubital; 14:02 Follow up: IV Status: Infusion continued upon admit; IV Intake: 300ml jc4 11:06 Drug: Piperacillin-Tazobactam 3.375 grams [piperacillin-tazobactam 3.375 gram ja5 intravenous solution] Route: IVPB; Infused Over: 30 mins; Site: right antecubital; 12:06 Follow up: IV Status: Completed infusion; IV Intake: 50ml jc4 Signatures: Dispatcher [employer] EDDavid Marshall MD MD pc Peters, Mary RN Pravin So mcp RN RACHEL cz Flores León, Reg Reg gb Too Aguayo, DO DO mm11 Ade Waldrop, REMOTE INPATIENT CODER REMOTE INPATIENT CODER ar3 Yoly Quintanilla RN RN jc4 Rosalind Oseguera, DO DO jo4 Candelaria Kenny, Reg Reg hs2 Yanira Nelson RN ja5 The chart was reviewed and I authenticate all verbal orders and agree with the evaluation and treatment provided.Attachments: 07:04 [facility] Payment Agreement hs2 09/21 10:58 T-Sheet-- Draft Copy gb Chart Complete MTDD
--- NOTE | 2016-09-22 15:13 | EDDOCDS ---
Physician Documentation [facility] Name: Kar Portillo Age: 71 yrs Sex: Male : 1945 Arrival Date: 09/20/2016 Time: 06:06 Bed 15 Private MD: Kalen Mccall H. Disposition: 09/20 10:46 I have independently interviewed and examined the patient, and I agree with the pc investigation, diagnosis and treatment plan as documented by the Resident. 12:29 Critical Care: Critical care not applicable. pc Disposition: 09/20/16 12:29 Hospitalization ordered by Inocente Weaver for Inpatient Admission. Preliminary diagnosis is Acute appendicitis with localized peritonitis. - Bed requested for 4 [place]. - Status is Inpatient Admission. mcp - Condition is Stable. - Problem is new. - Symptoms have improved. Historical: - Allergies: No known drug Allergies; - Home Meds: 1. Lisinopril Oral 2. Simvastatin Oral - PMHx: Hypercholesterolemia; Hypertension; - PSHx: left tibial repair; Carpal Tunnel Repair- Bilateral; - Social history: Smoking status: Patient states former smoker of tobacco. No barriers to communication noted, The patient speaks fluent Nicaraguan, Speaks appropriately for age. - Family history: Not pertinent. - : The pt / caregiver states he / she is not on anticoagulants. Home medication list is obtained from the patient. - Exposure Risk Screening:: None identified. Vital Signs: 06:15 BP 142 / 77; Pulse 99; Resp 16; Temp 97.7; Pulse Ox 98% on R/A; Weight 95.25 kg / cz 209.99 lbs; Height 5 ft. 11 in. (180.34 cm); 10:03 BP 155 / 74; Pulse 87; Resp 16; Temp 97.9(O); Pulse Ox 95% on R/A; Pain 3/10; ja5 13:30 BP 129 / 72; Pulse 89; Resp 20; Temp 98.5(O); Pulse Ox 96% ; Pain 2/10; ja5 06:15 Body Mass Index 29.29 (95.25 kg, 180.34 cm) cz MDM: 06:31 IV Saline Lock ordered. mm11 06:31 Undress patient appropriately for examination ordered. mm11 06:32 Amylase Ordered. EDMS 06:32 Basic Metabolic Profile Ordered. EDMS 06:32 CBC with Diff Ordered. EDMS 06:32 Cardiac Injury Profile Ordered. EDMS 06:32 Lipase Ordered. EDMS 06:32 Liver Profile Ordered. EDMS 06:32 Troponin Ordered. EDMS 06:32 NOTHING BY MOUTH+DIET ordered. EDMS 07:04 [facility] Payment Agreement was scanned into [employer] and attached to record. hs2 07:25 Amylase Reviewed. jo4 07:25 Basic Metabolic Profile Reviewed. jo4 07:25 CBC with Diff Reviewed. jo4 07:26 Liver Profile Reviewed. jo4 07:26 Cardiac Injury Profile Reviewed. jo4 07:27 Lipase Reviewed. jo4 07:27 Troponin Reviewed. jo4 07:40 Financial registration complete. hs2 07:41 CT ABD & PELVIS: IV and Oral Contrast Ordered. EDMS 08:09 Diatrizoate Meglumine & Sodium Liquid 10 ml PO once; mix in 290cc of water, administer jc4 at 0800 ordered. 08:09 Diatrizoate Meglumine & Sodium Liquid 10 ml PO once; mix in 290cc of water, administer jc4 at 0830 ordered. 10:42 NS 0.9% 1000 ml IV at 100 mL/hr continuous ordered. pc 10:42 Piperacillin-Tazobactam 3.375 grams IVPB once over 30 mins; dilute in 50mL of NS or D5W pc ordered. 10:43 BED REQUEST+ADM ordered. EDMS 12:59 Admission / Observation Status ordered. EDMS 12:59 NPO DIET ordered. EDMS 09/21 10:58 T-Sheet-- Draft Copy was scanned into [employer] and attached to record. gb Administered Medications: 09/20 08:08 Drug: Diatrizoate Meglumine & Sodium 10 ml [diatrizoate meglumine and diat.sodium 66 ja5 %-10 % oral solution (10 mL)] Route: PO; 08:30 Drug: Diatrizoate Meglumine & Sodium 10 ml [diatrizoate meglumine and diat.sodium 66 jc4 %-10 % oral solution (10 mL)] Route: PO; 11:06 Drug: NS 0.9% 1000 ml [sodium chloride 0.9 % intravenous solution] Route: IV; Rate: 100 ja5 mL/hr; Site: right antecubital; 14:02 Follow up: IV Status: Infusion continued upon admit; IV Intake: 300ml jc4 11:06 Drug: Piperacillin-Tazobactam 3.375 grams [piperacillin-tazobactam 3.375 gram ja5 intravenous solution] Route: IVPB; Infused Over: 30 mins; Site: right antecubital; 12:06 Follow up: IV Status: Completed infusion; IV Intake: 50ml jc4 Signatures: Dispatcher [employer] EDDavid Marshall MD MD pc Peters, Mary RN Pravin So mcp RN RACHEL cz Flores León, Reg Reg gb Too Aguayo, DO DO mm11 Ade Waldrop, SQL CONSULTANT SQL CONSULTANT ar3 Yoly Quintanilla RN RN jc4 Rosalind Oseguera, DO DO jo4 Candelaria Kenny, Reg Reg hs2 Yanira Nelson RN ja5 The chart was reviewed and I authenticate all verbal orders and agree with the evaluation and treatment provided.Attachments: 07:04 [facility] Payment Agreement hs2 09/21 10:58 T-Sheet-- Draft Copy gb Chart Complete MTDD
== END 2016-09-22 13:38 | disposition home or self-care (01) | DRG 372 ==
LOC: M ED 06:06 → M ED INP 12:55 → M MSPAV 14:18
PROVIDERS: ADMIT Surgery; ATTEND Surgery
DX: K35.3 Acute appendicitis with localized peritonitis (principal); K57.32 Diverticulitis of large intestine without perforation or abscess without bleeding; I10 Essential (primary) hypertension; E78.00 Pure hypercholesterolemia, unspecified; Z79.899 Other long term (current) drug therapy; Z87.891 Personal history of nicotine dependence

== ENCOUNTER → 2016-11-01 | Outpatient (CLI) | payer OTHER ==
[~2016-11-01] MED LIST changes: +CIPR500T89 PO; +FLAG500T PO; +GASTROGRAFIN SOLUTION 30ML (Q9963) As Ordered ONE; +ISOVUE-370 76% 100ML VIAL (Q9967) As Ordered ONE; +VITMTA PO
--- NOTE | 2016-11-01 13:41 | REP ---
CT ABDOMEN AND PELVIS WITH AND WITHOUT IV CONTRAST: TECHNIQUE: Axial noncontrast images through the abdomen followed by contrast-enhanced images through the abdomen and pelvis using 100 mL Isovue 370 intravenous contrast material, with coronal and sagittal reformations. COMPARISON: 09/20/2016 The visualized lung bases are clear. The liver demonstrates a few scattered tiny cysts. The spleen, adrenals and pancreas are unremarkable. There is no hydronephrosis bilaterally. There is a cyst in the mid right kidney 1.5 cm in diameter. Anteriorly in the mid left kidney, I suspect a small nodule approximately 1.3 cm in diameter representing a complex cyst or solid nodule. Moderate atherosclerotic calcifications are seen of the abdominal aorta without aneurysm. There is no adenopathy. There is no free air or free fluid. Extensive sigmoid diverticulosis is noted. Once again, there is thickening of the cecum with adjacent streaky inflammation in the surrounding fat. The appendix also appears thickened and dilated. The terminal ileum is probably mildly thickened as well as it courses a long the cecum. The inflammatory changes appear mildly improved since the prior exam. No abscess is seen. No pelvic mass is seen. The urinary bladder appears unremarkable. Metallic clips are seen in the superior aspect of the scrotum bilaterally. IMPRESSION: Mildly improved thickening of the cecum and mildly improved surrounding inflammatory changes. There is again evidence for a thickened dilated appendix. The findings are most consistent with colitis at the cecum and associated appendicitis. No free air, free fluid, or abscess. Small cyst right kidney. The left kidney appears to demonstrate a complex cyst or solid nodule 1.3 cm in diameter anteriorly in the mid aspect. Recommend renal ultrasound to further evaluate. Signed by Toby Sanders MD 11/01/2016 05:05 P
== END ==
LOC: M RAD 09:28
PROVIDERS: ATTEND Surgery
DX: K57.32 Diverticulitis of large intestine without perforation or abscess without bleeding (principal); N28.1 Cyst of kidney, acquired
CPT/HCPCS: 74178; Q9963; Q9967

== ENCOUNTER → 2017-05-25 | Outpatient (REF) | payer OTHER ==
[~2017-05-25] MED LIST changes: +CIPR-249 PO; -CIPR500T89 PO; -GASTROGRAFIN SOLUTION 30ML (Q9963) As Ordered ONE; -ISOVUE-370 76% 100ML VIAL (Q9967) As Ordered ONE
[2017-05-25 13:54] LABS: BLOOD UREA NITROGEN 19 MG/DL (7-18); GLOMERULAR FILTRATION RATE > 60.0 (>49)
== END ==
LOC: M LABDRAW1 09:59
PROVIDERS: ATTEND Surgery
DX: R10.31 Right lower quadrant pain (principal)

== ENCOUNTER → 2017-05-30 | Outpatient (CLI) | payer OTHER ==
[~2017-05-30] MED LIST changes: +GASTROGRAFIN SOLUTION 30ML (Q9963) As Ordered ONE; +ISOVUE-370 76% 100ML VIAL (Q9967) As Ordered ONE
--- NOTE | 2017-05-31 04:05 | REP ---
Clinical: Abdominal pain. Technique: Axial contrast enhanced images from the lung bases to the pubic symphysis using oral and 100 ml Isovue 370 intravenous contrast material with precontrast and delayed images of the abdomen as well as coronal and sagittal re-formations. Comparison: 11/01/2016. Findings: Mild inflammatory stranding at the base of the cecum and possibly involving what may be the appendix (images 94 - 103). Findings suggest mild cecitis and possible appendicitis and correlation with physical examination is required. diffuse sigmoid diverticulosis noted. The remainder of the small large bowel is grossly unremarkable. Liver, spleen, pancreas, gallbladder, bilateral adrenal glands and kidneys are normal / stable. Sub centimeter hepatic cysts appear benign and unchanged. Pelvis demonstrates normal bladder and age appropriate prostate gland. No ascites. No free air. No adenopathy. Atherosclerotic changes to the vasculature noted without aortic aneurysm or dissection. Musculoskeletal structures demonstrate age-related degenerative changes. Lung bases are clear. Impression: 1. Mild inflammatory stranding at the base of the cecum and possibly involving what may be the appendix. Findings suggest cecitis and possible appendicitis. Correlation is required. 2. Sigmoid diverticulosis. Signed by Ezequiel Hamm MD 05/31/2017 03:57 A
== END ==
LOC: M RAD 14:26
PROVIDERS: ATTEND Surgery
DX: R10.31 Right lower quadrant pain (principal)
CPT/HCPCS: 74178; Q9963; Q9967

== ENCOUNTER → 2017-08-08 | Outpatient (REF) | payer OTHER ==
[~2017-08-08] MED LIST changes: -GASTROGRAFIN SOLUTION 30ML (Q9963) As Ordered ONE; -ISOVUE-370 76% 100ML VIAL (Q9967) As Ordered ONE
[2017-08-08 13:52] LABS: MEAN CORPUSCULAR HEMOGLOBIN 27.8 pg (27.0-33.0); MEAN CORPUSCULAR HGB CONC 32.7 g/dl (32.0-36.5); MEAN CORPUSCULAR VOLUME 84.9 fl (80.0-96.0); PLATELET COUNT, AUTOMATED 226 10^3/uL (150-450); WHITE BLOOD COUNT 8.1 10^3/uL (4.0-10.0)
[2017-08-08 14:25] LABS: ALBUMIN 3.6 GM/DL (3.2-5.2); ALBUMIN/GLOBULIN RATIO 1.09 (1.00-1.93); ALKALINE PHOSPHATASE 98 U/L (45-117); ALT/SGPT 24 U/L (12-78); ANION GAP 9 MEQ/L (8-16); AST/SGOT 15 U/L (7-37); BILIRUBIN,TOTAL 0.7 MG/DL (0.2-1.0); BLOOD UREA NITROGEN 20 MG/DL (7-18); CALCIUM LEVEL 8.6 MG/DL (8.8-10.2); CARBON DIOXIDE LEVEL 28 MEQ/L (21-32); CHLORIDE LEVEL 103 MEQ/L (98-107); CREATININE FOR GFR 0.78 MG/DL (0.70-1.30); GLOMERULAR FILTRATION RATE > 60.0 (>49); GLUCOSE, FASTING 155 MG/DL (80-110); SODIUM LEVEL 140 MEQ/L (136-145); TOTAL PROTEIN 6.9 GM/DL (6.4-8.2)
== END ==
LOC: M LAB REF 11:49 → M LABDRAW1 11:51
PROVIDERS: ATTEND Anesthesiology
DX: Z01.818 Encounter for other preprocedural examination (principal); E78.00 Pure hypercholesterolemia, unspecified; J44.9 Chronic obstructive pulmonary disease, unspecified

== ENCOUNTER → 2017-09-13 | Outpatient (REF) | payer OTHER, MEDICARE ==
[2017-09-15 17:02] LABS: CARCINOEMBRYONIC ANTIGEN < 0.5 NG/ML (<2.5)
== END ==
LOC: M LAB REF 19:00
DX: C18.0 Malignant neoplasm of cecum (principal)

== ENCOUNTER 2017-10-24 16:09 | Emergency (ER) | payer MEDICARE ==
[2017-10-24] MEDS ORDERED: methylPREDNISolone INJ 125 MG/2 ML VIAL (J2930) As Ordered (16:17)
[2017-10-24] MEDS ORDERED: FAMOTIDINE IV BAG 20 MG in APPROPRIATE DILUENT 1 EA IV (16:30)
[2017-10-24] MEDS: methylPREDNISolone INJ 125 MG/2 ML VIAL (J2930) IV (16:30)
[2017-10-24] MEDS: NS 1,000 ML IV (16:30)
[2017-10-24] MEDS ORDERED: EPINEPHrine INJ 1 MG/ML 1ML AMP As Ordered (16:31)
[2017-10-24] MEDS: EPINEPHrine INJ 1 MG/ML 1ML AMP IM (16:33)
[2017-10-24] MEDS ORDERED: FAMOTIDINE INJ 20MG/2ML VIAL (S0028) IVP (16:45)
[2017-10-24] MEDS: FAMOTIDINE INJ 20MG/2ML VIAL (S0028) IVP ×2 (16:58→17:00)
[2017-10-24 17:08] LABS: BASO % 0.3 % (0.0-1.0); EOS # 0.2 10^3/uL (0.0-0.50); EOS % 1.8 % (0.0-3.0); HEMATOCRIT 44.5 % (42.0-52.0); HEMOGLOBIN 14.8 g/dl (14.0-18.0); IMMATURE GRANULOCYTE % 0.5 % (0-3.0); LYMPH # 2.2 10^3/uL (1.5-4.5); LYMPH % 16.5 % (24.0-44.0); MEAN CORPUSCULAR HEMOGLOBIN 27.9 pg (27.0-33.0); MEAN CORPUSCULAR HGB CONC 33.3 g/dl (32.0-36.5); MONO # 1.3 10^3/uL (0.0-0.8); MONO % 9.4 % (0.0-5.0); NEUTROPHILS # 9.5 10^3/uL (1.8-7.7); NEUTROPHILS % 71.5 % (36.0-66.0); PLATELET COUNT, AUTOMATED 198 10^3/uL (150-450); WHITE BLOOD COUNT 13.3 10^3/uL (4.0-10.0)
[2017-10-24 17:29] LABS: ALBUMIN 3.8 GM/DL (3.2-5.2); ALBUMIN/GLOBULIN RATIO 1.12 (1.00-1.93); ALKALINE PHOSPHATASE 85 U/L (45-117); ALT/SGPT 35 U/L (12-78); ANION GAP 10 MEQ/L (8-16); AST/SGOT 24 U/L (7-37); BILIRUBIN,TOTAL 0.8 MG/DL (0.2-1.0); BLOOD UREA NITROGEN 22 MG/DL (7-18); CALCIUM LEVEL 9.2 MG/DL (8.8-10.2); CARBON DIOXIDE LEVEL 26 MEQ/L (21-32); CHLORIDE LEVEL 105 MEQ/L (98-107); CREATININE FOR GFR 0.76 MG/DL (0.70-1.30); GLOMERULAR FILTRATION RATE > 60.0 (>42); GLUCOSE, FASTING 86 MG/DL (70-100); POTASSIUM SERUM 4.1 MEQ/L (3.5-5.1); SODIUM LEVEL 141 MEQ/L (136-145); TOTAL PROTEIN 7.2 GM/DL (6.4-8.2)
== END 2017-10-24 20:06 | disposition home or self-care (01) ==
LOC: M ED 16:09
DX: T78.40XA Allergy, unspecified, initial encounter (principal); R22.0 Localized swelling, mass and lump, head; X58.XXXA Exposure to other specified factors, initial encounter; Y92.89 Other specified places as the place of occurrence of the external cause; I10 Essential (primary) hypertension; E78.5 Hyperlipidemia, unspecified; Z79.899 Other long term (current) drug therapy
CPT/HCPCS: J2930

== ENCOUNTER → 2018-02-20 | Outpatient (REF) | payer MEDICARE ==
[2018-02-20 14:16] LABS: ALBUMIN 3.8 GM/DL (3.2-5.2); ALBUMIN/GLOBULIN RATIO 1.27 (1.00-1.93); ALKALINE PHOSPHATASE 83 U/L (45-117); ALT/SGPT 32 U/L (12-78); ANION GAP 11 MEQ/L (8-16); AST/SGOT 16 U/L (7-37); BLOOD UREA NITROGEN 19 MG/DL (7-18); CALCIUM LEVEL 8.8 MG/DL (8.8-10.2); CARBON DIOXIDE LEVEL 25 MEQ/L (21-32); CHLORIDE LEVEL 103 MEQ/L (98-107); CHOLESTEROL LEVEL 118 MG/DL (<200); CHOLESTEROL RISK RATIO 3.189 (<5); CREATININE FOR GFR 0.81 MG/DL (0.70-1.30); GLOMERULAR FILTRATION RATE > 60.0 (>42); GLUCOSE, FASTING 102 MG/DL (70-100); HDL CHOLESTEROL 37 MG/DL (>40); LDL CHOLESTEROL 32.4 MG/DL (<100); NON-HDL-C 81 MG/DL; POTASSIUM SERUM 4.3 MEQ/L (3.5-5.1); SODIUM LEVEL 139 MEQ/L (136-145); TOTAL PROTEIN 6.8 GM/DL (6.4-8.2); TRIGLYCERIDES LEVEL 243 MG/DL (<150)
== END ==
LOC: M LABDRAW1 12:02
DX: I10 Essential (primary) hypertension (principal); E78.5 Hyperlipidemia, unspecified
CPT/HCPCS: 80053

== ENCOUNTER → 2018-03-13 | Outpatient (REF) | payer MEDICARE ==
[2018-03-13 18:42] LABS: CARCINOEMBRYONIC ANTIGEN < 0.5 NG/ML (<2.5)
== END ==
LOC: M LAB REF 17:52
DX: C18.0 Malignant neoplasm of cecum (principal)
CPT/HCPCS: 82378

== ENCOUNTER → 2018-05-22 | Outpatient (REF) | payer MEDICARE ==
[2018-05-22 17:22] LABS: BASO % 0.2 % (0.0-1.0); EOS # 0.1 10^3/uL (0.0-0.50); EOS % 1.5 % (0.0-3.0); HEMATOCRIT 42.2 % (42.0-52.0); HEMOGLOBIN 14.4 g/dl (13.5-17.5); IMMATURE GRANULOCYTE % 0.5 % (0-3.0); LYMPH # 1.5 10^3/uL (1.5-4.5); LYMPH % 16.3 % (24.0-44.0); MEAN CORPUSCULAR HEMOGLOBIN 29.1 pg (27.0-33.0); MEAN CORPUSCULAR HGB CONC 34.1 g/dl (32.0-36.5); MEAN CORPUSCULAR VOLUME 85.4 fl (80.0-96.0); MONO # 0.8 10^3/uL (0.0-0.8); MONO % 8.2 % (0.0-5.0); NEUTROPHILS # 6.9 10^3/uL (1.8-7.7); NEUTROPHILS % 73.3 % (36.0-66.0); PLATELET COUNT, AUTOMATED 204 10^3/uL (150-450); RED BLOOD COUNT 4.94 10^6/uL (4.30-6.10); RED CELL DISTRIBUTION WIDTH 13.7 % (11.5-14.5); WHITE BLOOD COUNT 9.5 10^3/uL (4.0-10.0)
[2018-05-22 17:36] LABS: ALBUMIN 3.9 GM/DL (3.2-5.2); ALBUMIN/GLOBULIN RATIO 1.39 (1.00-1.93); ALKALINE PHOSPHATASE 71 U/L (45-117); ALT/SGPT 30 U/L (12-78); ANION GAP 11 MEQ/L (8-16); AST/SGOT 17 U/L (7-37); BILIRUBIN,TOTAL 0.9 MG/DL (0.2-1.0); BLOOD UREA NITROGEN 21 MG/DL (7-18); CALCIUM LEVEL 8.9 MG/DL (8.8-10.2); CARBON DIOXIDE LEVEL 25 MEQ/L (21-32); CHLORIDE LEVEL 107 MEQ/L (98-107); CREATININE FOR GFR 0.72 MG/DL (0.70-1.30); GLOMERULAR FILTRATION RATE > 60.0 (>42); GLUCOSE, FASTING 101 MG/DL (70-100); POTASSIUM SERUM 4.6 MEQ/L (3.5-5.1); SODIUM LEVEL 143 MEQ/L (136-145); TOTAL PROTEIN 6.7 GM/DL (6.4-8.2)
[2018-05-22 17:55] LABS: CARCINOEMBRYONIC ANTIGEN < 0.5 NG/ML (<2.5)
== END ==
LOC: M LABDRAW1 16:00
DX: C18.0 Malignant neoplasm of cecum (principal)
CPT/HCPCS: 82378

== ENCOUNTER → 2018-05-29 | Outpatient (CLI) | payer MEDICARE ==
[~2018-05-29] MED LIST changes: -CIPR-249 PO; -FLAG500T PO; +GASTROGRAFIN SOLUTION 30ML (Q9963) As Ordered; +ISOVUE-370 76% 100ML VIAL (Q9967) As Ordered; -LISI10TA4 PO; -MELO7.5S PO; -SIMV20TA2 PO; -TRAM50TA2 PO; -VITMTA PO
== END ==
LOC: M RAD 11:25
DX: Z85.038 Personal history of other malignant neoplasm of large intestine (principal); E04.1 Nontoxic single thyroid nodule; K57.30 Diverticulosis of large intestine without perforation or abscess without bleeding
CPT/HCPCS: Q9963

== ENCOUNTER → 2018-08-23 | Outpatient (REF) | payer MEDICARE ==
[~2018-08-23] MED LIST changes: +Acetaminophen Tab PO; +CIPR-249 PO; +COLA100C5 PO; +FLAG500T PO; -GASTROGRAFIN SOLUTION 30ML (Q9963) As Ordered; -ISOVUE-370 76% 100ML VIAL (Q9967) As Ordered; +LISI10TA4 PO; +MELO7.5S PO; +PRED20TA PO; +SIME1CAP PO; +SIMV20TA2 PO; +TRAM50TA2 PO; +VITMTA PO
[2018-08-23 12:32] LABS: ALBUMIN 3.8 GM/DL (3.2-5.2); ALT/SGPT 39 U/L (12-78); BILIRUBIN,TOTAL 1.1 MG/DL (0.2-1.0); BLOOD UREA NITROGEN 17 MG/DL (7-18); CALCIUM LEVEL 8.7 MG/DL (8.8-10.2); CARBON DIOXIDE LEVEL 33 MEQ/L (21-32); CHLORIDE LEVEL 103 MEQ/L (98-107); CHOLESTEROL LEVEL 119 MG/DL (<200); CREATININE FOR GFR 0.82 MG/DL (0.70-1.30); GLOMERULAR FILTRATION RATE > 60.0 (>42); GLUCOSE, FASTING 96 MG/DL (70-100); HDL CHOLESTEROL 35 MG/DL (>40); LDL CHOLESTEROL 43 MG/DL (<100); NON-HDL-C 84 MG/DL; POTASSIUM SERUM 4.7 MEQ/L (3.5-5.1); SODIUM LEVEL 141 MEQ/L (136-145); TOTAL PROTEIN 6.8 GM/DL (6.4-8.2); TRIGLYCERIDES LEVEL 206 MG/DL (<150)
== END ==
LOC: M LABDRAW1 11:56
PROVIDERS: ATTEND Internal Medicine
DX: I10 Essential (primary) hypertension (principal); E78.5 Hyperlipidemia, unspecified

== ENCOUNTER → 2018-12-04 | Outpatient (REF) | payer MEDICARE ==
[2018-12-04 12:23] LABS: HEMATOCRIT 45.4 % (42.0-52.0); HEMOGLOBIN 14.9 g/dl (13.5-17.5); MEAN CORPUSCULAR HEMOGLOBIN 28.4 pg (27.0-33.0); MEAN CORPUSCULAR HGB CONC 32.8 g/dl (32.0-36.5); MEAN CORPUSCULAR VOLUME 86.6 fl (80.0-96.0); PLATELET COUNT, AUTOMATED 185 10^3/uL (150-450); RED BLOOD COUNT 5.24 10^6/uL (4.30-6.10); WHITE BLOOD COUNT 6.5 10^3/uL (4.0-10.0)
[2018-12-05 17:12] LABS: BLOOD UREA NITROGEN 25 MG/DL (7-18); CREATININE FOR GFR 0.82 MG/DL (0.70-1.30); GLOMERULAR FILTRATION RATE > 60.0 (>42)
== END ==
LOC: M LABDRAW1 10:01
PROVIDERS: ATTEND Surgery
DX: C18.0 Malignant neoplasm of cecum (principal)

== ENCOUNTER → 2018-12-07 | Outpatient (CLI) | payer MEDICARE ==
[~2018-12-07] MED LIST changes: +GASTROGRAFIN SOLUTION 30ML (Q9963) As Ordered ONE; +ISOVUE-370 76% 100ML VIAL (Q9967) As Ordered ONE
--- NOTE | 2018-12-07 14:05 | REP ---
CT ABDOMEN PELVIS WITHOUT AND WITH IV CONTRAST: WITH ORAL CONTRAST. HISTORY: Malignant neoplasm of the cecum. Comparison CT study May 29, 2018. CT CONTRAST DOSE: 100 mL of intravenous Isovue 370. CT FINDINGS: Preliminary digital hospice rn radiograph is unremarkable. The lung bases remain clear on axial CT images. There are multiple stable small hepatic cysts again noted. No liver mass lesion is apparent. No splenic or adrenal lesion is observed. There are small bilateral renal cortical cysts again noted. Vascular calcifications noted. No pancreatic abnormality is seen. The gallbladder shows no abnormality. The patient status post right hemicolectomy with ileal right colonic anastomoses seen. There is no evidence of adenopathy in the region or recurrent mass. No mesenteric adenopathy is seen. No abdominal wall mass or abdominal wall defect is observed. There is extensive sigmoid and rectosigmoid colon diverticulosis. There is a elongate chronic mural thickening in the rectosigmoid colon, which may be indicative of chronic or prior diverticulitis. There is no pericolonic streaking or focal mass lesion. Urinary bladder is unremarkable. There are dystrophic calcifications in the prostate. No bony destructive lesion is appreciated. IMPRESSION: Status post right hemicolectomy. Extensive left colonic diverticulosis. Stable hepatic and renal cysts. There is no evidence of intra-abdominal metastatic disease. Electronically Signed by Hakan Song MD 12/07/2018 02:38 P
== END ==
LOC: M RAD 09:21
PROVIDERS: ATTEND Surgery
DX: K57.30 Diverticulosis of large intestine without perforation or abscess without bleeding (principal); N28.1 Cyst of kidney, acquired; K76.89 Other specified diseases of liver
CPT/HCPCS: 74178; Q9963; Q9967

== ENCOUNTER → 2019-03-05 | Outpatient (REF) | payer MEDICARE ==
[~2019-03-05] MED LIST changes: -GASTROGRAFIN SOLUTION 30ML (Q9963) As Ordered ONE; -ISOVUE-370 76% 100ML VIAL (Q9967) As Ordered ONE
[2019-03-05 12:56] LABS: ALBUMIN 3.8 GM/DL (3.2-5.2); ALT/SGPT 32 U/L (12-78); BLOOD UREA NITROGEN 21 MG/DL (7-18); CALCIUM LEVEL 9.2 MG/DL (8.8-10.2); CARBON DIOXIDE LEVEL 28 MEQ/L (21-32); CHLORIDE LEVEL 104 MEQ/L (98-107); CHOLESTEROL LEVEL 111 MG/DL (<200); CHOLESTEROL RISK RATIO 2.846 (<5); CREATININE FOR GFR 0.79 MG/DL (0.70-1.30); GLOMERULAR FILTRATION RATE > 60.0 (>42); GLUCOSE, FASTING 94 MG/DL (70-100); HDL CHOLESTEROL 39 MG/DL (>40); LDL CHOLESTEROL 35 MG/DL (<100); NON-HDL-C 72 MG/DL; POTASSIUM SERUM 4.5 MEQ/L (3.5-5.1); SODIUM LEVEL 139 MEQ/L (136-145); TOTAL PROTEIN 6.8 GM/DL (6.4-8.2); TRIGLYCERIDES LEVEL 184 MG/DL (<150)
== END ==
LOC: M LABDRAW1 07:39
PROVIDERS: ATTEND Internal Medicine
DX: I10 Essential (primary) hypertension (principal); E78.5 Hyperlipidemia, unspecified

== ENCOUNTER → 2019-09-14 | Outpatient (CLI) | payer MEDICARE, OTHER ==
[~2019-09-14] MED LIST changes: -SIMV20TA2 PO; +SIMV20TA22 PO
[2019-09-14 13:19] LABS: ALBUMIN 3.9 GM/DL (3.2-5.2); ALT/SGPT 35 U/L (12-78); BILIRUBIN,TOTAL 0.8 MG/DL (0.2-1.0); BLOOD UREA NITROGEN 18 MG/DL (7-18); CALCIUM LEVEL 8.6 MG/DL (8.8-10.2); CARBON DIOXIDE LEVEL 29 MEQ/L (21-32); CHLORIDE LEVEL 107 MEQ/L (98-107); CHOLESTEROL LEVEL 110 MG/DL (<200); CHOLESTEROL RISK RATIO 2.894 (<5); CREATININE FOR GFR 0.69 MG/DL (0.70-1.30); GLOMERULAR FILTRATION RATE > 60.0 (>42); GLUCOSE, FASTING 93 MG/DL (70-100); HDL CHOLESTEROL 38 MG/DL (>40); LDL CHOLESTEROL 44 MG/DL (<100); NON-HDL-C 72 MG/DL; POTASSIUM SERUM 4.5 MEQ/L (3.5-5.1); SODIUM LEVEL 144 MEQ/L (136-145); TOTAL PROTEIN 6.9 GM/DL (6.4-8.2); TRIGLYCERIDES LEVEL 138 MG/DL (<150)
== END ==
LOC: M ADAMS 08:10
PROVIDERS: ATTEND Internal Medicine
DX: I10 Essential (primary) hypertension (principal); E78.5 Hyperlipidemia, unspecified

== ENCOUNTER → 2020-03-09 | Outpatient (CLI) | payer MEDICARE ==
[2020-03-09 07:11] LABS: ALBUMIN 3.7 GM/DL (3.2-5.2); ALT/SGPT 24 U/L (12-78); BILIRUBIN,TOTAL 0.7 MG/DL (0.2-1.0); CALCIUM LEVEL 8.8 MG/DL (8.8-10.2); CARBON DIOXIDE LEVEL 30 MEQ/L (21-32); CHLORIDE LEVEL 105 MEQ/L (98-107); CHOLESTEROL LEVEL 117 MG/DL (<200); CREATININE FOR GFR 0.81 MG/DL (0.70-1.30); GLOMERULAR FILTRATION RATE > 60.0 (>42); GLUCOSE, FASTING 114 MG/DL (70-100); HDL CHOLESTEROL 39 MG/DL (>40); LDL CHOLESTEROL 50 MG/DL (<100); NON-HDL-C 78 MG/DL; POTASSIUM SERUM 4.1 MEQ/L (3.5-5.1); SODIUM LEVEL 138 MEQ/L (136-145); TOTAL PROTEIN 6.7 GM/DL (6.4-8.2); TRIGLYCERIDES LEVEL 139 MG/DL (<150)
[2020-03-11 14:15] LABS: BLOOD UREA NITROGEN 25 MG/DL (7-18)
== END ==
LOC: M LAB 06:19
PROVIDERS: ATTEND Internal Medicine
DX: E78.5 Hyperlipidemia, unspecified (principal); I10 Essential (primary) hypertension; C18.0 Malignant neoplasm of cecum

== ENCOUNTER → 2020-03-09 | Outpatient (CLI) | payer MEDICARE ==
[2020-03-09 07:07] LABS: BLOOD UREA NITROGEN 25 MG/DL (7-18); CREATININE FOR GFR 0.86 MG/DL (0.70-1.30); GLOMERULAR FILTRATION RATE > 60.0 (>42)
== END ==
LOC: M LAB 06:16
PROVIDERS: ATTEND Surgery
DX: C18.0 Malignant neoplasm of cecum (principal)

== ENCOUNTER → 2020-03-13 | Outpatient (CLI) | payer MEDICARE ==
[~2020-03-13] MED LIST changes: +GASTROGRAFIN SOLUTION 30ML (Q9963) As Ordered ONE; +ISOVUE-370 76% 100ML VIAL As Ordered ONE
--- NOTE | 2020-03-13 11:04 | REP ---
REASON FOR EXAM: History of colon carcinoma. COMPARISON: Multiple, the latest 12/07/2018. CONTRAST: 100 mL Isovue 370. The lung bases are clear and unchanged. The precontrast enhanced portion of the examination again shows hepatic and splenic densities to be within normal limits. There are small hepatic cysts status quo. There are no nephroliths or choleliths. Contrast enhanced portion of the examination shows the liver, gallbladder, spleen, pancreas, adrenal glands, and kidneys to be unchanged. Small hepatic and renal cysts status quo. The abdominal aorta and para-aortic regions are again seen to be within normal limits. The intra-abdominal and intrapelvic bowel loops and their mesenteries are essentially unchanged. Extensive sigmoid colon diverticulosis is noted status quo. No free fluid or free air is seen in the abdomen or pelvis. No intra-abdominal or intrapelvic mass or adenopathy has developed. Bone window technique through the examination shows the osseous structures to be stable and intact. IMPRESSION: No significant change compared to the prior exam with findings as described above. There is no evidence of acute disease. Electronically Signed by Marcelino Canales DO 03/13/2020 03:55 P
== END ==
LOC: M RAD 06:51
PROVIDERS: ATTEND Surgery
DX: Z85.038 Personal history of other malignant neoplasm of large intestine (principal)
CPT/HCPCS: 74178; Q9963; Q9967

== ENCOUNTER 2020-04-16 12:25 | Day surgery (SDC) | payer MEDICARE ==
[~2020-04-16 12:25] MED LIST changes: +ASPIRIN 81 MG CHEW TABLET ONE; -GASTROGRAFIN SOLUTION 30ML (Q9963) As Ordered ONE; -ISOVUE-370 76% 100ML VIAL As Ordered ONE; +LIDOCAINE 2% 100MG/5ML SDV (FOR ANES.) ONE; +propofoL 200 MG/20 ML VIAL ONE
== END 2020-04-16 12:50 | disposition home or self-care (01) ==
LOC: M SDC 12:25
PROVIDERS: ATTEND Surgery
DX: Z12.11 Encounter for screening for malignant neoplasm of colon (principal); Z85.038 Personal history of other malignant neoplasm of large intestine; K64.1 Second degree hemorrhoids; K64.2 Third degree hemorrhoids; K57.30 Diverticulosis of large intestine without perforation or abscess without bleeding; Z79.82 Long term (current) use of aspirin; Z79.899 Other long term (current) drug therapy; Z88.8 Allergy status to other drugs, medicaments and biological substances; Z95.5 Presence of coronary angioplasty implant and graft; Z87.891 Personal history of nicotine dependence

== ENCOUNTER → 2020-09-23 | Outpatient (CLI) | payer MEDICARE ==
[~2020-09-23] MED LIST changes: -ASPIRIN 81 MG CHEW TABLET ONE; -LIDOCAINE 2% 100MG/5ML SDV (FOR ANES.) ONE; +LISI10TA22 PO; -LISI10TA4 PO; -propofoL 200 MG/20 ML VIAL ONE
[2020-09-23 07:13] LABS: ALBUMIN 3.9 GM/DL (3.2-5.2); ALT/SGPT 29 U/L (12-78); BILIRUBIN,TOTAL 0.8 MG/DL (0.2-1.0); BLOOD UREA NITROGEN 30 MG/DL (7-18); CALCIUM LEVEL 9.7 MG/DL (8.8-10.2); CARBON DIOXIDE LEVEL 29 MEQ/L (21-32); CHLORIDE LEVEL 102 MEQ/L (98-107); CHOLESTEROL LEVEL 116 MG/DL (<200); CHOLESTEROL RISK RATIO 2.974 (<5); CREATININE FOR GFR 0.92 MG/DL (0.70-1.30); GLOMERULAR FILTRATION RATE > 60.0 (>42); GLUCOSE, FASTING 126 MG/DL (70-100); HDL CHOLESTEROL 39 MG/DL (>40); LDL CHOLESTEROL 46 MG/DL (<100); NON-HDL-C 77 MG/DL; POTASSIUM SERUM 4.1 MEQ/L (3.5-5.1); SODIUM LEVEL 138 MEQ/L (136-145); TOTAL PROTEIN 6.8 GM/DL (6.4-8.2); TRIGLYCERIDES LEVEL 153 MG/DL (<150)
== END ==
LOC: M LAB 06:19
PROVIDERS: ATTEND Internal Medicine
DX: I10 Essential (primary) hypertension (principal); E78.5 Hyperlipidemia, unspecified

== ENCOUNTER → 2020-11-02 | Outpatient (CLI) | payer MEDICARE ==
--- NOTE | 2020-11-02 11:08 | REP ---
INDICATION: PAIN IN RIGHT SHOULDER COMPARISON: None. TECHNIQUE: Internal rotation, external rotation, and Y view. FINDINGS: No acute fracture or dislocation. The acromioclavicular and glenohumeral joints are intact and essentially age-appropriate. No periarticular calcifications or degenerative changes are appreciated. Sub acromial space is normal. Surrounding soft tissues are unremarkable. IMPRESSION: Normal age-appropriate right shoulder radiographs. <Electronically signed by Ezequiel Hamm > 11/02/20 [id number]
== END ==
LOC: M RAD 10:00
PROVIDERS: ATTEND Physician Assistant
DX: M25.511 Pain in right shoulder (principal)

== ENCOUNTER → 2020-11-20 | Outpatient (CLI) | payer MEDICARE ==
--- NOTE | 2020-11-20 08:25 | REP ---
INDICATION: PAIN IN RT SHOULDER. COMPARISON: Comparison radiographs November 02, 2020.. TECHNIQUE: Axial, oblique coronal and oblique sagittal imaging planes utilized. T1 and T2 weighted scans are obtained in the usual fashion with without fat saturation. FINDINGS: Glenohumeral and acromioclavicular joint alignment is normal. There is osteoarthritic hypertrophy and minimal fluid in the AC joint. The subacromial subdeltoid bursal effusion is seen. There is inferolateral spurring of the acromion process mild in extent. There are moderate chondromalacia changes in the humeral head articular cartilage. There is a large area of intermediate increased signal intensity in the distal supraspinatus tendon near its attachment consistent with a nearly full-thickness supraspinatus tear. Tendinitis tendinosis changes seen diffusely in the supraspinatus tendon. There is tendinosis in the subscapularis tendon mild in degree. Biceps tendon is in the bony bicipital groove and appears to be intact. The superior labral cartilage is unremarkable. No anterior or posterior labral tear is appreciated. No loose body is seen. There is minimal subcortical cyst formation in the posterolateral humeral head. 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 Tendinitis tendinosis changes in the supraspinatus and subscapularis tendons. Nearly full-thickness focal T2 hyperintense supraspinatus lesion distally near its insertion. AC joint osteoarthritis. Subacromial subdeltoid bursal effusion. <Electronically signed by Musa Song > 11/20/20 [id number]
== END ==
LOC: M RAD 06:29
PROVIDERS: ATTEND Physician Assistant
DX: M25.511 Pain in right shoulder (principal)

== ENCOUNTER → 2021-01-22 | Outpatient (CLI) | payer MEDICARE | LOC: M LABSMTC 12:50 | PROVIDERS: ATTEND Internal Medicine Cardiovascular Disease | DX: Z01.812 Encounter for preprocedural laboratory examination (principal); Z20.822 Contact with and (suspected) exposure to COVID-19 ==

== ENCOUNTER → 2021-03-26 | Outpatient (CLI) | payer MEDICARE ==
[2021-03-26 07:19] LABS: HEMATOCRIT 40.9 % (42.0-52.0); HEMOGLOBIN 12.7 g/dl (13.5-17.5); MEAN CORPUSCULAR HEMOGLOBIN 26.5 pg (27.0-33.0); MEAN CORPUSCULAR HGB CONC 31.1 g/dl (32.0-36.5); MEAN CORPUSCULAR VOLUME 85.2 fl (80.0-96.0); PLATELET COUNT, AUTOMATED 199 10^3/uL (150-450); WHITE BLOOD COUNT 8.3 10^3/uL (4.0-10.0)
[2021-03-26 07:35] LABS: HEMOGLOBIN A1c 5.8 %
[2021-03-26 07:41] LABS: ALBUMIN 3.5 GM/DL (3.2-5.2); ALT/SGPT 24 U/L (12-78); BILIRUBIN,TOTAL 0.8 MG/DL (0.2-1.0); BLOOD UREA NITROGEN 24 MG/DL (7-18); CALCIUM LEVEL 8.9 MG/DL (8.8-10.2); CARBON DIOXIDE LEVEL 32 MEQ/L (21-32); CHLORIDE LEVEL 107 MEQ/L (98-107); CHOLESTEROL LEVEL 122 MG/DL (<200); CHOLESTEROL RISK RATIO 3.297 (<5); CREATININE FOR GFR 0.75 MG/DL (0.70-1.30); GLOMERULAR FILTRATION RATE > 60.0 (>42); GLUCOSE, FASTING 105 MG/DL (70-100); HDL CHOLESTEROL 37 MG/DL (>40); LDL CHOLESTEROL 44 MG/DL (<100); NON-HDL-C 85 MG/DL; POTASSIUM SERUM 4.6 MEQ/L (3.5-5.1); SODIUM LEVEL 142 MEQ/L (136-145); TOTAL PROTEIN 6.7 GM/DL (6.4-8.2); TRIGLYCERIDES LEVEL 206 MG/DL (<150)
== END ==
LOC: M LAB 06:40
PROVIDERS: ATTEND Internal Medicine
DX: I25.10 Atherosclerotic heart disease of native coronary artery without angina pectoris (principal); R73.01 Impaired fasting glucose

== ENCOUNTER → 2021-09-30 | Outpatient (REF) | payer MEDICARE ==
[2021-09-30 12:39] LABS: BASO % 0.1 % (0.0-1.0); EOS # 0.2 10^3/uL (0.0-0.5); EOS % 2.7 % (0.0-3.0); HEMATOCRIT 43.5 % (42.0-52.0); LYMPH # 1.3 10^3/uL (1.5-5.0); MEAN CORPUSCULAR HEMOGLOBIN 28.1 pg (27.0-33.0); MEAN CORPUSCULAR HGB CONC 32.2 g/dl (32.0-36.5); MEAN CORPUSCULAR VOLUME 87.3 fl (80.0-96.0); MONO # 0.9 10^3/uL (0.0-0.8); MONO % 10.6 % (2.0-8.0); NEUTROPHILS # 5.7 10^3/uL (1.5-8.5); NEUTROPHILS % 70.4 % (36.0-66.0); PLATELET COUNT, AUTOMATED 181 10^3/uL (150-450); RED BLOOD COUNT 4.98 10^6/uL (4.30-6.10); WHITE BLOOD COUNT 8.2 10^3/uL (4.0-10.0)
[2021-09-30 13:47] LABS: HEMOGLOBIN A1c 5.6 %
[2021-09-30 14:23] LABS: ALBUMIN 3.6 GM/DL (3.2-5.2); ALT/SGPT 24 U/L (12-78); BILIRUBIN,TOTAL 0.6 MG/DL (0.2-1.0); BLOOD UREA NITROGEN 28 MG/DL (7-18); CALCIUM LEVEL 8.7 MG/DL (8.8-10.2); CARBON DIOXIDE LEVEL 27 MEQ/L (21-32); CHLORIDE LEVEL 107 MEQ/L (98-107); CHOLESTEROL LEVEL 116 MG/DL (<200); CHOLESTEROL RISK RATIO 3.314 (<5); CREATININE FOR GFR 0.78 MG/DL (0.70-1.30); GLOMERULAR FILTRATION RATE > 60.0 (>42); GLUCOSE, FASTING 106 MG/DL (70-100); HDL CHOLESTEROL 35 MG/DL (>40); LDL CHOLESTEROL 56 MG/DL (<100); NON-HDL-C 81 MG/DL; POTASSIUM SERUM 4.6 MEQ/L (3.5-5.1); SODIUM LEVEL 140 MEQ/L (136-145); TOTAL PROTEIN 6.7 GM/DL (6.4-8.2); TRIGLYCERIDES LEVEL 124 MG/DL (<150)
== END ==
LOC: M LABDRWAD 12:21
PROVIDERS: ATTEND Internal Medicine
DX: I10 Essential (primary) hypertension (principal); E78.5 Hyperlipidemia, unspecified; R73.01 Impaired fasting glucose

== ENCOUNTER → 2021-10-13 | Outpatient (CLI) | payer MEDICARE ==
[2021-10-13 08:29] LABS: BLOOD UREA NITROGEN 27 MG/DL (7-18); GLOMERULAR FILTRATION RATE > 60.0 (>42)
== END ==
LOC: M LAB 07:20
PROVIDERS: ATTEND Surgery
DX: Z01.818 Encounter for other preprocedural examination (principal); R97.0 Elevated carcinoembryonic antigen [CEA]; Z85.038 Personal history of other malignant neoplasm of large intestine

== ENCOUNTER → 2021-10-20 | Outpatient (CLI) | payer MEDICARE ==
[~2021-10-20] MED LIST changes: +GASTROGRAFIN SOLUTION 30ML (Q9963) As Ordered ONE; +ISOVUE-370 76% 100ML VIAL As Ordered ONE
== END ==
LOC: M RAD 13:23
PROVIDERS: ATTEND Surgery
DX: Z85.038 Personal history of other malignant neoplasm of large intestine (principal); J43.9 Emphysema, unspecified; K44.9 Diaphragmatic hernia without obstruction or gangrene; K76.89 Other specified diseases of liver; N20.0 Calculus of kidney; N28.1 Cyst of kidney, acquired; N28.89 Other specified disorders of kidney and ureter; Z90.49 Acquired absence of other specified parts of digestive tract; K57.30 Diverticulosis of large intestine without perforation or abscess without bleeding
CPT/HCPCS: 74178; Q9963; Q9967

== ENCOUNTER → 2022-04-04 | Outpatient (CLI) | payer MEDICARE ==
[~2022-04-04] MED LIST changes: -GASTROGRAFIN SOLUTION 30ML (Q9963) As Ordered ONE; -ISOVUE-370 76% 100ML VIAL As Ordered ONE
[2022-04-04 09:22] LABS: BASO % 0.4 % (0.0-1.0); EOS # 0.2 10^3/uL (0.0-0.5); EOS % 2.4 % (0.0-3.0); HEMATOCRIT 42.6 % (42.0-52.0); HEMOGLOBIN 13.8 g/dl (13.5-17.5); LYMPH # 1.2 10^3/uL (1.5-5.0); LYMPH % 14.8 % (24.0-44.0); MEAN CORPUSCULAR HEMOGLOBIN 28.5 pg (27.0-33.0); MEAN CORPUSCULAR HGB CONC 32.4 g/dl (32.0-36.5); MONO # 0.5 10^3/uL (0.0-0.8); MONO % 6.6 % (2.0-8.0); NEUTROPHILS # 5.9 10^3/uL (1.5-8.5); NEUTROPHILS % 75.4 % (36.0-66.0); RED BLOOD COUNT 4.84 10^6/uL (4.30-6.10); WHITE BLOOD COUNT 7.8 10^3/uL (4.0-10.0)
[2022-04-04 09:48] LABS: ALBUMIN 3.6 GM/DL (3.2-5.2); ALT/SGPT 29 U/L (12-78); BILIRUBIN,TOTAL 0.8 MG/DL (0.2-1.0); BLOOD UREA NITROGEN 20 MG/DL (7-18); CALCIUM LEVEL 9.2 MG/DL (8.8-10.2); CARBON DIOXIDE LEVEL 24 MEQ/L (21-32); CHLORIDE LEVEL 112 MEQ/L (98-107); CHOLESTEROL LEVEL 111 MG/DL (<200); CHOLESTEROL RISK RATIO 2.921 (<5); CREATININE FOR GFR 0.85 MG/DL (0.70-1.30); GLOMERULAR FILTRATION RATE > 60.0 (>42); GLUCOSE, FASTING 101 MG/DL (70-100); HDL CHOLESTEROL 38 MG/DL (>40); LDL CHOLESTEROL 40 MG/DL (<100); NON-HDL-C 73 MG/DL; POTASSIUM SERUM 4.4 MEQ/L (3.5-5.1); SODIUM LEVEL 143 MEQ/L (136-145); TOTAL PROTEIN 6.8 GM/DL (6.4-8.2); TRIGLYCERIDES LEVEL 164 MG/DL (<150)
[2022-04-04 10:35] LABS: HEMOGLOBIN A1c 5.8 %
== END ==
LOC: M LAB 08:27
PROVIDERS: ATTEND Internal Medicine
DX: I10 Essential (primary) hypertension (principal); E78.5 Hyperlipidemia, unspecified; R73.01 Impaired fasting glucose

== ENCOUNTER → 2022-05-23 | Outpatient (CLI) | payer MEDICARE ==
[2022-05-23 08:17] LABS: HEMATOCRIT 38.8 % (42.0-52.0); HEMOGLOBIN 12.3 g/dl (13.5-17.5); MEAN CORPUSCULAR HEMOGLOBIN 28.2 pg (27.0-33.0); MEAN CORPUSCULAR HGB CONC 31.7 g/dl (32.0-36.5); PLATELET COUNT, AUTOMATED 194 10^3/uL (150-450); RED BLOOD COUNT 4.36 10^6/uL (4.30-6.10); WHITE BLOOD COUNT 7.2 10^3/uL (4.0-10.0)
[2022-05-23 08:55] LABS: BLOOD UREA NITROGEN 22 MG/DL (7-18); CALCIUM LEVEL 8.7 MG/DL (8.8-10.2); CARBON DIOXIDE LEVEL 24 MEQ/L (21-32); CHLORIDE LEVEL 114 MEQ/L (98-107); CREATININE FOR GFR 0.78 MG/DL (0.70-1.30); GLOMERULAR FILTRATION RATE > 60.0 (>42); GLUCOSE, FASTING 103 MG/DL (70-100); POTASSIUM SERUM 3.5 MEQ/L (3.5-5.1); SODIUM LEVEL 143 MEQ/L (136-145)
== END ==
LOC: M LAB 07:24
PROVIDERS: ATTEND Surgery
DX: K57.32 Diverticulitis of large intestine without perforation or abscess without bleeding (principal)

== ENCOUNTER → 2022-06-01 | Outpatient (CLI) | payer MEDICARE ==
[~2022-06-01] MED LIST changes: +GASTROGRAFIN SOLUTION 30ML (Q9963) As Ordered ONE; +ISOVUE-370 76% 100ML VIAL As Ordered ONE
== END ==
LOC: M RAD 08:57
PROVIDERS: ATTEND Surgery
DX: K57.32 Diverticulitis of large intestine without perforation or abscess without bleeding (principal); R93.2 Abnormal findings on diagnostic imaging of liver and biliary tract; Z90.49 Acquired absence of other specified parts of digestive tract
CPT/HCPCS: 74178; Q9963; Q9967

== ENCOUNTER → 2022-07-04 | Outpatient (CLI) | payer MEDICARE ==
[~2022-07-04] MED LIST changes: +ASPI-1 PO; -GASTROGRAFIN SOLUTION 30ML (Q9963) As Ordered ONE; -ISOVUE-370 76% 100ML VIAL As Ordered ONE
== END ==
LOC: M LABSMTC 10:55
PROVIDERS: ATTEND Anesthesiology
DX: Z01.812 Encounter for preprocedural laboratory examination (principal); Z20.822 Contact with and (suspected) exposure to COVID-19

== ENCOUNTER → 2022-07-06 | Outpatient (CLI) | payer MEDICARE | LOC: M LAB 16:14 | PROVIDERS: ATTEND Anesthesiology | DX: R00.9 Unspecified abnormalities of heart beat (principal); Z95.2 Presence of prosthetic heart valve ==

== ENCOUNTER 2022-07-08 06:53 | Inpatient (IN) | payer MEDICARE ==
[~2022-07-08] VITALS: Ht 177.8 cm; Wt 97.1 kg
[2022-07-08] VITALS (8 sets, daily range): BP systolic 128–144; BP diastolic 56–77; O2SAT 96
[~2022-07-08 06:53] MED LIST changes: +ERTAPENEM SODIUM 1 GM in NS MINI-BAG PLUS 50 ML IV ONE
[2022-07-08] MEDS ORDERED: LR 1,000 ML IV SCH ×2 (07:10→12:30)
[2022-07-08] MEDS ORDERED: ROCURONIUM BROMIDE 50 MG/5 ML VIAL As Ordered ONE ×2 (07:25→08:41)
[2022-07-08] MEDS ORDERED: propofoL 200 MG/20 ML VIAL As Ordered ONE (07:25)
[2022-07-08] MEDS ORDERED: MIDAZOLAM INJ 2MG/2ML VIAL (J2250 PER 1MG) As Ordered ONE (07:25)
[2022-07-08] MEDS ORDERED: fentaNYL 250 MCG/5 ML INJECTION As Ordered ONE (07:25)
[2022-07-08] MEDS ORDERED: LIDOCAINE 2% 100MG/5ML SDV (FOR ANES.) As Ordered ONE (07:25)
[2022-07-08] MEDS ORDERED: BUPIVACAINE HCL 0.25% 10ML VIAL As Ordered ONE (07:28)
[2022-07-08] MEDS ORDERED: BUPIVACAINE LIPOSOME/PF 1.3% 20ML VIAL (13.3MG/ML)(EXPAREL) As Ordered ONE (07:28)
[2022-07-08] MEDS ORDERED: ASPI81TA26 PO (07:35)
[2022-07-08] MEDS ORDERED: TRAM50TA2 PO (07:35)
[2022-07-08] MEDS ORDERED: LISI20TA33 PO (07:35)
[2022-07-08] MEDS ORDERED: ACET1TAB55 PO (07:35)
[2022-07-08] MEDS ORDERED: METO1TAB87 PO (07:35)
[2022-07-08] MEDS ORDERED: MM S100C PO (07:35)
[2022-07-08] MEDS ORDERED: HOME MED LIST COMPLETE! XX SCH (07:40)
[2022-07-08] MEDS ORDERED: GLUCAGON INJ 1MG VIAL As Ordered ONE (07:45)
[2022-07-08] MEDS ORDERED: BUPIVACAINE/EPIN 0.5% 30 ML VIAL As Ordered ONE (07:45)
[2022-07-08] MEDS ORDERED: LIDOCAINE 5% OINT 30GM TUBE As Ordered ONE (08:17)
[2022-07-08] MEDS ORDERED: LACRILUBE (AKWA TEARS) OPHTH OINT 3.5 GM As Ordered ONE (08:26)
[2022-07-08] MEDS ORDERED: PHENYLephrine 500MCG 5ML (100MCG/ML) SYRINGE As Ordered ONE ×2 (08:47→11:00)
[2022-07-08] MEDS ORDERED: HYDROmorphone HCL 2MG/ML 1ML VIAL As Ordered ONE (09:31)
[2022-07-08] MEDS ORDERED: DESFLURANE 240 ML INHALANT As Ordered ONE (10:33)
[2022-07-08] MEDS ORDERED: PHENYLEPHRINE 10MG/ML 1ML VIAL As Ordered ONE (11:07)
[2022-07-08] MEDS ORDERED: ACETAMINOPHEN 1000MG 100ML IV BAG As Ordered ONE (11:56)
[2022-07-08] MEDS ORDERED: SUGAMMADEX SODIUM 500 MG/5 ML VIAL (BRIDION) As Ordered ONE (12:24)
[2022-07-08] MEDS ORDERED: HYDROMORPHONE HCL 0.5 MG/ 0.5 ML SYRINGE (J1170 PER 1) IV PRN (12:30)
[2022-07-08] MEDS ORDERED: oxyCODONE 5MG TAB PO PRN (12:30)
[2022-07-08] MEDS ORDERED: fentaNYL 100 MCG/2 ML INJECTION IV PRN (12:30)
[2022-07-08] MEDS ORDERED: ONDANSETRON 4MG 2ML VIAL IV PRN (12:30)
[2022-07-08] MEDS ORDERED: IPRATROPIUM 0.5MG/ALBUTEROL 2.5MG INH SOL UD 3ML (DUONEB) NEB PRN (13:00)
[2022-07-08] MEDS: KETOROLAC 30 MG/ML 1ML VIAL IV SCH ×2 (14:52→20:00)
[2022-07-08] MEDS: IPRATROPIUM 0.5MG/ALBUTEROL 2.5MG INH SOL UD 3ML (DUONEB) NEB SCH ×2 (16:14→20:40)
[2022-07-08] MEDS: MORPHINE 2 MG/ML 1ML VIAL IV PRN ×2 (16:19→20:35)
[2022-07-08] MEDS: NS 1,000 ML IV SCH (16:42)
[2022-07-08] MEDS: CALCIUM CARBONATE 500 MG CHEW U/D PO PRN (22:05)
[2022-07-09 00:30] VITALS: BP 151/67
[2022-07-09] MEDS: NS 1,000 ML IV SCH ×3 (00:56→13:19)
[2022-07-09] MEDS: MORPHINE 2 MG/ML 1ML VIAL IV PRN ×2 (00:57→05:34)
[2022-07-09] MEDS: KETOROLAC 30 MG/ML 1ML VIAL IV SCH ×4 (01:01→19:56)
[2022-07-09] MEDS: IPRATROPIUM 0.5MG/ALBUTEROL 2.5MG INH SOL UD 3ML (DUONEB) NEB SCH ×4 (01:07→18:15)
[2022-07-09 04:30] VITALS: BP 147/67
[2022-07-09 06:13] LABS: HEMATOCRIT 33.3 % (42.0-52.0); HEMOGLOBIN 11.1 g/dl (13.5-17.5); MEAN CORPUSCULAR HEMOGLOBIN 28.8 pg (27.0-33.0); MEAN CORPUSCULAR HGB CONC 33.3 g/dl (32.0-36.5); MEAN CORPUSCULAR VOLUME 86.5 fl (80.0-96.0); PLATELET COUNT, AUTOMATED 143 10^3/uL (150-450); RED BLOOD COUNT 3.85 10^6/uL (4.30-6.10); WHITE BLOOD COUNT 12.1 10^3/uL (4.0-10.0)
[2022-07-09 06:48] LABS: BLOOD UREA NITROGEN 30 MG/DL (7-18); CALCIUM LEVEL 8.2 MG/DL (8.8-10.2); CARBON DIOXIDE LEVEL 25 MEQ/L (21-32); CHLORIDE LEVEL 105 MEQ/L (98-107); CREATININE FOR GFR 1.18 MG/DL (0.70-1.30); GLOMERULAR FILTRATION RATE > 60.0 (>42); GLUCOSE, FASTING 168 MG/DL (70-100); POTASSIUM SERUM 3.9 MEQ/L (3.5-5.1); SODIUM LEVEL 141 MEQ/L (136-145)
[2022-07-09] MEDS: PANTOPRAZOLE 40MG VIAL IV SCH (09:17)
[2022-07-09] MEDS: ERTAPENEM SODIUM 1 GM in NS MINI-BAG PLUS 50 ML IV SCH (09:18)
[2022-07-09] MEDS: CALCIUM CARBONATE 500 MG CHEW U/D PO PRN (09:19)
[2022-07-09 10:00] VITALS: BP 153/66
[2022-07-09] MEDS ORDERED: MORPHINE 4 MG/ML 1ML VIAL/SYRINGE IV PRN (10:03)
[2022-07-09 14:00] VITALS: BP 156/65
[2022-07-09] MEDS ORDERED: ACETAMINOPHEN TAB 650MG DOSE (2X325MG) PO PRN (17:05)
[2022-07-09 18:00] VITALS: BP 154/66
[2022-07-09] MEDS: METOPROLOL TART 25 MG TABLET PO SCH (19:56)
[2022-07-09 20:20] VITALS: BP 143/62
[2022-07-10] VITALS (8 sets, daily range): BP systolic 118–160; BP diastolic 58–75; O2SAT 97
[2022-07-10] MEDS: IPRATROPIUM 0.5MG/ALBUTEROL 2.5MG INH SOL UD 3ML (DUONEB) NEB SCH ×4 (02:00→18:03)
[2022-07-10] MEDS: KETOROLAC 30 MG/ML 1ML VIAL IV SCH ×4 (02:14→20:37)
[2022-07-10 06:16] LABS: HEMATOCRIT 30.3 % (42.0-52.0); HEMOGLOBIN 9.9 g/dl (13.5-17.5); MEAN CORPUSCULAR HEMOGLOBIN 28.4 pg (27.0-33.0); MEAN CORPUSCULAR HGB CONC 32.7 g/dl (32.0-36.5); MEAN CORPUSCULAR VOLUME 86.8 fl (80.0-96.0); PLATELET COUNT, AUTOMATED 119 10^3/uL (150-450); RED BLOOD COUNT 3.49 10^6/uL (4.30-6.10)
[2022-07-10 06:50] LABS: BLOOD UREA NITROGEN 27 MG/DL (7-18); CALCIUM LEVEL 8.6 MG/DL (8.8-10.2); CARBON DIOXIDE LEVEL 30 MEQ/L (21-32); CHLORIDE LEVEL 106 MEQ/L (98-107); CREATININE FOR GFR 0.81 MG/DL (0.70-1.30); GLOMERULAR FILTRATION RATE > 60.0 (>42); GLUCOSE, FASTING 102 MG/DL (70-100); POTASSIUM SERUM 4.1 MEQ/L (3.5-5.1); SODIUM LEVEL 139 MEQ/L (136-145)
[2022-07-10] MEDS: PANTOPRAZOLE 40MG VIAL IV SCH (08:11)
[2022-07-10] MEDS: ERTAPENEM SODIUM 1 GM in NS MINI-BAG PLUS 50 ML IV SCH (08:13)
[2022-07-10] MEDS: METOPROLOL TART 25 MG TABLET PO SCH ×2 (08:14→20:37)
[2022-07-10] MEDS: NS 1,000 ML IV SCH (18:19)
[2022-07-10] MEDS: MORPHINE 2 MG/ML 1ML VIAL IV PRN (18:41)
[2022-07-10] MEDS: ONDANSETRON 4MG 2ML VIAL IV PRN (20:37)
[2022-07-11] MEDS: IPRATROPIUM 0.5MG/ALBUTEROL 2.5MG INH SOL UD 3ML (DUONEB) NEB SCH ×4 (01:26→19:56)
[2022-07-11] MEDS: KETOROLAC 30 MG/ML 1ML VIAL IV SCH ×4 (01:58→20:33)
[2022-07-11] MEDS: NS 1,000 ML IV SCH ×4 (01:58→18:00)
[2022-07-11 02:00] VITALS: BP 148/72
[2022-07-11 06:00] VITALS: BP 170/84
[2022-07-11 06:14] LABS: HEMATOCRIT 36.8 % (42.0-52.0); HEMOGLOBIN 11.8 g/dl (13.5-17.5); MEAN CORPUSCULAR HEMOGLOBIN 28.3 pg (27.0-33.0); MEAN CORPUSCULAR HGB CONC 32.1 g/dl (32.0-36.5); MEAN CORPUSCULAR VOLUME 88.2 fl (80.0-96.0); PLATELET COUNT, AUTOMATED 166 10^3/uL (150-450); RED BLOOD COUNT 4.17 10^6/uL (4.30-6.10); WHITE BLOOD COUNT 8.1 10^3/uL (4.0-10.0)
[2022-07-11 07:03] LABS: BLOOD UREA NITROGEN 21 MG/DL (7-18); CALCIUM LEVEL 9.1 MG/DL (8.8-10.2); CARBON DIOXIDE LEVEL 28 MEQ/L (21-32); CHLORIDE LEVEL 106 MEQ/L (98-107); CREATININE FOR GFR 0.82 MG/DL (0.70-1.30); GLOMERULAR FILTRATION RATE > 60.0 (>42); GLUCOSE, FASTING 118 MG/DL (70-100); POTASSIUM SERUM 4.3 MEQ/L (3.5-5.1); SODIUM LEVEL 138 MEQ/L (136-145)
[2022-07-11] MEDS: ERTAPENEM SODIUM 1 GM in NS MINI-BAG PLUS 50 ML IV SCH (08:06)
[2022-07-11] MEDS: PANTOPRAZOLE 40MG VIAL IV SCH (08:06)
[2022-07-11] MEDS: ONDANSETRON 4MG 2ML VIAL IV PRN (08:06)
[2022-07-11] MEDS: METOPROLOL TART 25 MG TABLET PO SCH ×2 (08:07→20:33)
[2022-07-11 10:00] VITALS: BP 142/70
[2022-07-11] MEDS: ALVIMOPAN 12 MG CAPSULE (ENTEREG) PO SCH ×2 (11:43→20:32)
[2022-07-11 14:00] VITALS: BP 140/61
[2022-07-11 18:00] VITALS: BP 144/76
[2022-07-11 22:00] VITALS: BP 150/74
[2022-07-12] MEDS: NS 1,000 ML IV SCH ×4 (00:58→21:32)
[2022-07-12] MEDS: KETOROLAC 30 MG/ML 1ML VIAL IV SCH ×4 (01:00→20:07)
[2022-07-12 02:00] VITALS: BP 149/74
[2022-07-12] MEDS: IPRATROPIUM 0.5MG/ALBUTEROL 2.5MG INH SOL UD 3ML (DUONEB) NEB SCH ×4 (02:00→19:44)
[2022-07-12 06:00] VITALS: BP 176/88
[2022-07-12 06:45] LABS: HEMATOCRIT 35.7 % (42.0-52.0); HEMOGLOBIN 11.1 g/dl (13.5-17.5); MEAN CORPUSCULAR HEMOGLOBIN 28.3 pg (27.0-33.0); MEAN CORPUSCULAR HGB CONC 31.1 g/dl (32.0-36.5); MEAN CORPUSCULAR VOLUME 91.1 fl (80.0-96.0); PLATELET COUNT, AUTOMATED 168 10^3/uL (150-450); RED BLOOD COUNT 3.92 10^6/uL (4.30-6.10); WHITE BLOOD COUNT 4.9 10^3/uL (4.0-10.0)
[2022-07-12 07:31] LABS: BLOOD UREA NITROGEN 26 MG/DL (7-18); CARBON DIOXIDE LEVEL 28 MEQ/L (21-32); CHLORIDE LEVEL 111 MEQ/L (98-107); CREATININE FOR GFR 0.71 MG/DL (0.70-1.30); GLOMERULAR FILTRATION RATE > 60.0 (>42); GLUCOSE, FASTING 99 MG/DL (70-100); POTASSIUM SERUM 4.6 MEQ/L (3.5-5.1); SODIUM LEVEL 146 MEQ/L (136-145)
[2022-07-12] MEDS: ERTAPENEM SODIUM 1 GM in NS MINI-BAG PLUS 50 ML IV SCH (08:38)
[2022-07-12] MEDS: METOPROLOL TART 25 MG TABLET PO SCH ×2 (08:38→20:09)
[2022-07-12] MEDS: ALVIMOPAN 12 MG CAPSULE (ENTEREG) PO SCH ×2 (08:38→20:07)
[2022-07-12] MEDS: PANTOPRAZOLE 40MG VIAL IV SCH (08:38)
[2022-07-12 10:00] VITALS: BP 160/75
[2022-07-12 14:00] VITALS: BP 155/76
[2022-07-12 18:00] VITALS: BP 164/76
[2022-07-12 22:00] VITALS: BP 160/60
[2022-07-13] VITALS (7 sets, daily range): BP systolic 140–171; BP diastolic 68–90
[2022-07-13] MEDS: KETOROLAC 30 MG/ML 1ML VIAL IV SCH ×2 (01:00→08:20)
[2022-07-13] MEDS: IPRATROPIUM 0.5MG/ALBUTEROL 2.5MG INH SOL UD 3ML (DUONEB) NEB SCH ×4 (02:43→20:12)
[2022-07-13] MEDS: NS 1,000 ML IV SCH (04:13)
[2022-07-13 05:59] LABS: HEMATOCRIT 35.3 % (42.0-52.0); HEMOGLOBIN 10.8 g/dl (13.5-17.5); MEAN CORPUSCULAR HEMOGLOBIN 28.6 pg (27.0-33.0); MEAN CORPUSCULAR HGB CONC 30.6 g/dl (32.0-36.5); MEAN CORPUSCULAR VOLUME 93.4 fl (80.0-96.0); PLATELET COUNT, AUTOMATED 166 10^3/uL (150-450); RED BLOOD COUNT 3.78 10^6/uL (4.30-6.10); WHITE BLOOD COUNT 5.3 10^3/uL (4.0-10.0)
[2022-07-13 06:42] LABS: BLOOD UREA NITROGEN 23 MG/DL (7-18); CALCIUM LEVEL 8.1 MG/DL (8.8-10.2); CARBON DIOXIDE LEVEL 21 MEQ/L (21-32); CHLORIDE LEVEL 113 MEQ/L (98-107); CREATININE FOR GFR 0.62 MG/DL (0.70-1.30); GLOMERULAR FILTRATION RATE > 60.0 (>42); GLUCOSE, FASTING 79 MG/DL (70-100); POTASSIUM SERUM 3.7 MEQ/L (3.5-5.1); SODIUM LEVEL 143 MEQ/L (136-145)
[2022-07-13] MEDS: ERTAPENEM SODIUM 1 GM in NS MINI-BAG PLUS 50 ML IV SCH (08:20)
[2022-07-13] MEDS: PANTOPRAZOLE 40MG VIAL IV SCH (08:20)
[2022-07-13] MEDS: METOPROLOL TART 25 MG TABLET PO SCH ×2 (08:21→20:21)
[2022-07-13] MEDS: ALVIMOPAN 12 MG CAPSULE (ENTEREG) PO SCH ×2 (08:21→20:20)
[2022-07-13] MEDS: SIMETHICONE 80MG CHEW TAB PO SCH ×3 (14:03→20:20)
[2022-07-14] VITALS (8 sets, daily range): BP systolic 120–166; BP diastolic 64–86
[2022-07-14] MEDS: IPRATROPIUM 0.5MG/ALBUTEROL 2.5MG INH SOL UD 3ML (DUONEB) NEB SCH ×4 (01:36→19:47)
[2022-07-14 06:10] LABS: HEMATOCRIT 34.5 % (42.0-52.0); HEMOGLOBIN 10.9 g/dl (13.5-17.5); MEAN CORPUSCULAR HEMOGLOBIN 27.9 pg (27.0-33.0); MEAN CORPUSCULAR HGB CONC 31.6 g/dl (32.0-36.5); MEAN CORPUSCULAR VOLUME 88.2 fl (80.0-96.0); PLATELET COUNT, AUTOMATED 195 10^3/uL (150-450); RED BLOOD COUNT 3.91 10^6/uL (4.30-6.10); WHITE BLOOD COUNT 7.1 10^3/uL (4.0-10.0)
[2022-07-14 06:36] LABS: BLOOD UREA NITROGEN 20 MG/DL (7-18); CALCIUM LEVEL 8.3 MG/DL (8.8-10.2); CARBON DIOXIDE LEVEL 26 MEQ/L (21-32); CHLORIDE LEVEL 109 MEQ/L (98-107); CREATININE FOR GFR 0.68 MG/DL (0.70-1.30); GLOMERULAR FILTRATION RATE > 60.0 (>42); GLUCOSE, FASTING 87 MG/DL (70-100); POTASSIUM SERUM 3.5 MEQ/L (3.5-5.1); SODIUM LEVEL 142 MEQ/L (136-145)
[2022-07-14] MEDS: ALVIMOPAN 12 MG CAPSULE (ENTEREG) PO SCH ×2 (09:59→20:02)
[2022-07-14] MEDS: METOPROLOL TART 25 MG TABLET PO SCH ×2 (10:00→20:02)
[2022-07-14] MEDS: ERTAPENEM SODIUM 1 GM in NS MINI-BAG PLUS 50 ML IV SCH (10:00)
[2022-07-14] MEDS ORDERED: PILL CUTTER 1 EACH XX PRN (10:25)
[2022-07-14] MEDS: PANTOPRAZOLE 40MG VIAL IV SCH (11:29)
[2022-07-14] MEDS: SIMETHICONE 80MG CHEW TAB PO SCH ×4 (11:30→20:02)
[2022-07-15] MEDS: IPRATROPIUM 0.5MG/ALBUTEROL 2.5MG INH SOL UD 3ML (DUONEB) NEB SCH ×2 (01:20→07:14)
[2022-07-15 02:00] VITALS: BP 126/68
[2022-07-15 06:00] VITALS: BP 120/60
[2022-07-15 06:16] LABS: HEMATOCRIT 32.9 % (42.0-52.0); HEMOGLOBIN 10.6 g/dl (13.5-17.5); MEAN CORPUSCULAR HEMOGLOBIN 28.3 pg (27.0-33.0); MEAN CORPUSCULAR HGB CONC 32.2 g/dl (32.0-36.5); PLATELET COUNT, AUTOMATED 205 10^3/uL (150-450); RED BLOOD COUNT 3.74 10^6/uL (4.30-6.10); WHITE BLOOD COUNT 9.2 10^3/uL (4.0-10.0)
[2022-07-15 06:37] LABS: BLOOD UREA NITROGEN 16 MG/DL (7-18); CALCIUM LEVEL 8.4 MG/DL (8.8-10.2); CARBON DIOXIDE LEVEL 28 MEQ/L (21-32); CHLORIDE LEVEL 108 MEQ/L (98-107); CREATININE FOR GFR 0.78 MG/DL (0.70-1.30); GLOMERULAR FILTRATION RATE > 60.0 (>42); GLUCOSE, FASTING 125 MG/DL (70-100); POTASSIUM SERUM 3.4 MEQ/L (3.5-5.1); SODIUM LEVEL 141 MEQ/L (136-145)
[2022-07-15] MEDS: ERTAPENEM SODIUM 1 GM in NS MINI-BAG PLUS 50 ML IV SCH (09:20)
[2022-07-15] MEDS: SIMETHICONE 80MG CHEW TAB PO SCH (09:20)
[2022-07-15] MEDS: ALVIMOPAN 12 MG CAPSULE (ENTEREG) PO SCH (09:20)
[2022-07-15 09:21] VITALS: BP 125/79
[2022-07-15] MEDS: METOPROLOL TART 25 MG TABLET PO SCH (09:21)
[2022-07-15] MEDS: PANTOPRAZOLE 40MG VIAL IV SCH (09:21)
== END 2022-07-15 10:50 | disposition home or self-care (01) | DRG 330 ==
LOC: M OR 06:53 → M MSPAV 14:47
PROVIDERS: ADMIT Surgery; ATTEND Surgery
PROC: 0DTN0ZZ Resection of Sigmoid Colon, Open Approach (ICD-10-PCS; 2022-07-08)
PROC: 0DBP0ZZ Excision of Rectum, Open Approach (ICD-10-PCS; 2022-07-08)
PROC: 0D1K0Z4 Bypass Ascending Colon to Cutaneous, Open Approach (ICD-10-PCS; principal; 2022-07-08 08:45)
DX: K57.32 Diverticulitis of large intestine without perforation or abscess without bleeding (principal); K91.89 Other postprocedural complications and disorders of digestive system; K60.4 Rectal fistula; I10 Essential (primary) hypertension; E78.00 Pure hypercholesterolemia, unspecified; I25.10 Atherosclerotic heart disease of native coronary artery without angina pectoris; Z79.82 Long term (current) use of aspirin; Z79.899 Other long term (current) drug therapy; Z88.8 Allergy status to other drugs, medicaments and biological substances; Z53.31 Laparoscopic surgical procedure converted to open procedure; Z95.5 Presence of coronary angioplasty implant and graft

== ENCOUNTER → 2022-08-14 | Outpatient (CLI) | payer MEDICARE ==
[~2022-08-14] MED LIST changes: +ACET1TAB55 PO; +ASPI81TA26 PO; -ERTAPENEM SODIUM 1 GM in NS MINI-BAG PLUS 50 ML IV ONE; +LISI20TA33 PO; +METO1TAB87 PO; +MM S100C PO
== END ==
LOC: M LABSMTC 11:35
PROVIDERS: ATTEND Anesthesiology
DX: Z01.812 Encounter for preprocedural laboratory examination (principal); Z20.822 Contact with and (suspected) exposure to COVID-19

== ENCOUNTER → 2022-08-26 | Outpatient (CLI) | payer MEDICARE ==
[~2022-08-26] MED LIST changes: +LIQUID POLIBAR PLUS 105% w/v 750ML BTL As Ordered ONE
== END ==
LOC: M RAD 08:24
PROVIDERS: ATTEND Surgery
DX: K57.32 Diverticulitis of large intestine without perforation or abscess without bleeding (principal); Z43.2 Encounter for attention to ileostomy

== ENCOUNTER → 2022-10-20 | Outpatient (CLI) | payer MEDICARE ==
[~2022-10-20] MED LIST changes: -LIQUID POLIBAR PLUS 105% w/v 750ML BTL As Ordered ONE; +TRAZ-252 PO
== END ==
LOC: M LABSMTC 10:07
PROVIDERS: ATTEND Anesthesiology
DX: Z01.812 Encounter for preprocedural laboratory examination (principal); Z11.52 Encounter for screening for COVID-19

== ENCOUNTER → 2023-05-01 | Outpatient (CLI) | payer MEDICARE | LOC: M WUC 09:03 | PROVIDERS: ATTEND Student in an Organized Health Care Education/Training Program | DX: Z02.1 Encounter for pre-employment examination (principal) ==

== ENCOUNTER → 2024-01-31 | Outpatient (CLI) | payer MEDICARE | LOC: M RAD 14:37 | PROVIDERS: ATTEND Internal Medicine | DX: Z12.2 Encounter for screening for malignant neoplasm of respiratory organs (principal); F17.211 Nicotine dependence, cigarettes, in remission; J84.10 Pulmonary fibrosis, unspecified; I25.10 Atherosclerotic heart disease of native coronary artery without angina pectoris; I70.0 Atherosclerosis of aorta; R91.1 Solitary pulmonary nodule ==